=== PATIENT | female | born 1965 | race Caucasian/White ===

== ENCOUNTER → 2017-06-16 12:45 | Outpatient (CLI) | payer OTHER, SELFPAY ==
--- NOTE | 2017-06-16 12:49 | MM_ITS ---
MM Dig screening mamm BI w/CAD CAD Screening COMPARISON: Digital mammograms 07/22/2011 and 04/09/2015 INDICATION: There is a history of breast cancer patient's mother and maternal aunt both diagnosed after menopause. TECHNIQUE: Standard CC and MLO images were obtained. R2 CAD reviewed. FINDINGS: There is a markedly dense and heterogenic parenchymal pattern lessening the sensitivity of mammography. There is a biopsy clip right breast. There are few benign-appearing calcifications in each breast. There is no suspicious lesion and there are no suspicious microcalcifications. IMPRESSION: Diffusely dense parenchymal pattern no suspicious lesion seen BI-RADS Category: 2 Benign Finding(s) RECOMMENDED FOLLOW-UP: 1YR - 1 YEAR FOLLOW-UP (A letter has been sent to the patient regarding results of the study.)
== END ==
PROVIDERS: Family Provider Family Medicine; PCP Family Medicine; Visit Provider Family Medicine
DX: Z12.31 Encounter for screening mammogram for malignant neoplasm of breast (principal)
CPT/HCPCS: 77067

== ENCOUNTER 2018-07-15 15:38 | Emergency (ER) | payer OTHER, MEDICARE, SELFPAY ==
[2018-07-15 16:12] VITALS: BP 127/78; PULSE 90; RESP 17; TEMP 36.7; O2SAT 100; BMI 22.0
--- NOTE | 2018-07-15 16:16 | CT_ITS ---
CT pelvis wo con INDICATION: Posterior lytic pain ITS.REASON: fall ORDERING PHYSICIAN: Norman Carbajal MD PATIENT AGE: 53 years COMPARISON: None TECHNIQUE: Axial images are obtained without contrast. Sagittal and coronal reformatted images are reviewed as well. All CT scans at the facility use one or more dose reduction, viz: automated exposure control, ma/kV adjustment per patient size (including targeted exams where dose is matched to indication, i.e. head), or iterative reconstruction technique. FINDINGS: No fracture or dislocation is evident. No coccyx subluxation or lytic or blastic change. The SI joints have an unremarkable appearance. Small amount fluid is present in the pelvis which is nonspecific. IMPRESSION: No acute fracture
--- NOTE | 2018-07-15 16:16 | CT_ITS ---
CT head/brain wo con HISTORY: Headache, head injury with pain, ITS.REASON: fall ORDERING PHYSICIAN: Norman Carbajal MD PATIENT AGE: 53 years COMPARISON: None TECHNIQUE: Axial images obtained without contrast. Brain and bone windows reviewed. All CT scans at the facility use one or more dose reduction, viz: automated exposure control, ma/kV adjustment per patient size (including targeted exams where dose is matched to indication, i.e. head), or iterative reconstruction technique. FINDINGS: No midline shift, mass effect, intracranial hemorrhage, hydrocephalus, or extra-axial fluid collection is evident. The calvarium has an unremarkable appearance. No mastoid effusion. No sinus air-fluid levels.. IMPRESSION: Negative CT head without contrast. No acute finding
--- NOTE | 2018-07-15 16:16 | CT_ITS ---
CT thoracic spine wo con INDICATION: Severe back pain following injury ITS.REASON: fall ORDERING PHYSICIAN: Norman Carbajal MD PATIENT AGE: 53 years COMPARISON: None TECHNIQUE: Axial images are obtained without contrast. Sagittal and coronal reformatted images are reviewed as well. All CT scans at the facility use one or more dose reduction, viz: automated exposure control, ma/kV adjustment per patient size (including targeted exams where dose is matched to indication, i.e. head), or iterative reconstruction technique. FINDINGS: Normal alignment. No fracture or dislocation. No significant arthritic change. Visualized lung dinero are clear. No paraspinal hematoma. No lytic or blastic change IMPRESSION: Negative thoracic spine CT, no acute finding
--- NOTE | 2018-07-15 16:16 | XR_ITS ---
XR hip LT 2-3V w/pelvis HISTORY: ITS.REASON: fall ORDERING PHYSICIAN: Norman Carbajal MD PATIENT AGE: 53 years COMPARISON: None FINDINGS: No fracture or dislocation is evident. No significant degenerative change. No lytic or blastic change. Unremarkable soft tissues IMPRESSION: Negative hip
--- NOTE | 2018-07-15 16:16 | XR_ITS ---
XR elbow LT 2V HISTORY: Pain following injury ITS.REASON: fall ORDERING PHYSICIAN: Norman Carbajal MD PATIENT AGE: 53 years COMPARISON: None FINDINGS: BONY STRUCTURES: No fracture or dislocation. No lytic or blastic change. Normal mineralization. SOFT TISSUES: Unremarkable. No radio opaque foreign bodies. No displaced fat pad. JOINT SPACE: Well-preserved. No significant arthritic changes evident. IMPRESSION: Negative elbow.
--- NOTE | 2018-07-15 16:16 | CT_ITS ---
CT CERVICAL SPINE WITHOUT CONTRAST CT RECONSTRUCTIONS HISTORY: ORDERING PHYSICIAN: Norman Carbajal MD PATIENT AGE: 53 years COMPARISON: None Technique: All CT scans at the facility use one or more dose reduction, viz: automated exposure control, ma/kV adjustment per patient size (including targeted exams where dose is matched to indication, i.e. head), or iterative reconstruction technique PROCEDURE: Axial spiral CT scanning performed of the cervical spine beginning at the base of the skull and continuing to the upper T-spine. 3-D multiplanar reconstruction with 3-D manipulation of volumetric data set in image rendering was completed by the radiologist and/or technologist with the supervision of the radiologist on independent workstation. FINDINGS: No fracture nor subluxation is evident. Normal prevertebral soft tissues. Facets, neural foramen and vertebral bodies intact and unremarkable. Normal C1/C2 relationships. Apices of lungs are clear with no acute findings. IMPRESSION: Cervical spine intact with no fracture nor subluxation.
--- NOTE | 2018-07-15 16:16 | CT_ITS ---
CT lumbar spine wo con INDICATION: ITS.REASON: fall ORDERING PHYSICIAN: Norman Carbajal MD PATIENT AGE: 53 years COMPARISON: None TECHNIQUE: Axial images obtained with sagittal and coronal reformats. All CT scans at the facility use one or more dose reduction, viz: automated exposure control, ma/kV adjustment per patient size (including targeted exams where dose is matched to indication, i.e. head), or iterative reconstruction technique. FINDINGS: Normal alignment. No fracture or dislocation. The disc spaces are well-preserved. No significant degenerative change. No canal stenosis IMPRESSION: No acute finding, negative CT lumbar spine
--- NOTE | 2018-07-15 16:17 | HMH.EDGENADL ---
ED Disposition Clinical Impression: Multiple contusions Fall Qualifiers: Encounter type: initial encounter Qualified Code(s): W19.XXXA - Unspecified fall, initial encounter Disposition: Home, Self-Care Condition on Discharge: Good Additional Instructions: Ibuprofen for pain. Follow-up with primary care provider next week. Referrals: Mynor Deutsch MD [Primary Care Provider] - - Critical Care Critical Care Time: No Attestation: On 07/15/18, the high probability of a clinically significant, sudden or life threatening deterioration of the following system(s) required my full and direct attention, intervention and personal management. The time I documented below is in addition to time spent performing reported procedures but includes the following listed in this critical care notation. Medical Decision Making - Carlos Inquiry Pt receiving controlled substance: No Carlos was queried for this patient: Yes Reference #:: [id number] Comment: 30 rxs, almost all for gabapentin and xanax. Vital Signs: 07/15/18 16:12 07/15/18 16:20 07/15/18 17:20 Temperature 98.0 F Temperature Source Oral Pulse Rate [Right Brachial] 90 79 70 Respiratory Rate 17 Blood Pressure [Right Arm] 127/78 143/76 H 108/72 L Blood Pressure Mean [Right Arm] 94 98 84 Blood Pressure Source [Right Arm] Automatic Cuff Blood Pressure Position [Right Arm] Sitting 02 Sat by Pulse Oximetry 100 98 96 Oxygen Delivery Method Room Air Orders (Tests/Meds): ORDERS Category Date Time Status XR elbow LT 2V Stat Exams 07/15/18 16:16 Taken XR hip LT 2-3V w/pelvis Stat Exams 07/15/18 16:16 Taken - Radiology Data #1 Image(s): Elbow, Hip Image Reviewed: Yes I reviewed the patient's radiology image Preliminary Findings: Normal/NAD - CT Data CT Scan: Head, C-Spine, Pelvis, T-Spine, L-Spine Time Received: 17:[address] Reviewed: Yes: I have viewed the radiologist's interpretation Preliminary Findings: Normal/NAD - Reevaluation(s) Time: 17:35 Reevaluation #1: Discussed results. Patient says her pain has alleviated and her legs are feeling better. General Adult HPI - General Chief complaint: Fall Stated complaint: Fell/Body Pain Time Seen by Provider: 07/15/18 16:19 Mode of Arrival: Ambulatory Limitations: No Limitations Description of Symptoms (Recalled from ER Triage Doc. by RN): pt states she fell at home on wednesday of this week; accidentally slid to floor instead of sitting on bed like she had planned and hit her left elbow, left arm and left leg. outside of having bruises, and being sore; no additional complaints at that time. has since developed a knot between her shoulder blades on her spine that is radiating a pain up into her neck and causing her legs to feel heavy . denies any issues with bowel or bladder at this time. - History of Present Illness HPI narrative: States she fell on Wednesday while getting into bed landing on her left side. Has been sore and stiff all week long. Has pain in her left elbow left hip and thoracic back. Today the pain in between her shoulder blades in the thoracic spine became severe and she feels like her muscles in her arms and legs are weak. The pain goes up into her neck. She has chronic neck problems as well from cervical neuralgia. She also has chronic migraines and has a headache. Pain also goes down from her thoracic spine into her lower back. - Related Data Allergies Allergy/AdvReac Type Severity Reaction Status Date / Time eletriptan [From RELPAX] Allergy Unknown TIGHTNESS Unverified 03/02/17 14:52 AND TINGLING IN THROAT tramadol [TRAMADOL] AdvReac Unknown INSTRUCTED Unverified 03/02/17 14:52 TO NOT TAKE R/T SEIZURE HX [facility] History - Hepatitis A Screen Drug use history?: No High risk sexual behaviors?: No History of sexually transmitted infection?: No Currently employed?: No Childcare worker?: No Do you have indoor plumbin
[2018-07-15 16:20] VITALS: BP 143/76; PULSE 79; O2SAT 98
[2018-07-15 17:20] VITALS: BP 108/72; PULSE 70; O2SAT 96
[2018-07-15 17:46] VITALS: BP 121/79; PULSE 71; RESP 17; TEMP 36.7; O2SAT 99
== END 2018-07-15 17:57 | disposition home or self-care (01) ==
PROVIDERS: Emergency Provider Emergency Medicine; PCP Family Medicine
DX: S50.12XA Contusion of left forearm, initial encounter (principal); S70.12XA Contusion of left thigh, initial encounter; S40.012A Contusion of left shoulder, initial encounter; W01.0XXA Fall on same level from slipping, tripping and stumbling without subsequent striking against object, initial encounter; Y92.013 Bedroom of single-family (private) house as the place of occurrence of the external cause
CPT/HCPCS: 70450; 72125; 72128; 72131; 72192; 73070; 73502; 96372; 99282

== ENCOUNTER → 2019-02-06 16:56 | Outpatient (CLI) | payer OTHER, MEDICARE, SELFPAY ==
--- NOTE | 2019-02-06 17:03 | XR_ITS ---
PROCEDURE: XR ELBOW LT MIN 3V CLINICAL INDICATION: CONTUSION OF LEFT ELBOW, SUBSEQUENT ENCOUNTER Posttraumatic pain and swelling with limited range of motion COMPARISON: No exams were available for comparison FINDINGS: There is a positive anterior fat pad. On the lateral view there is a suggestion of a nondisplaced transverse fracture through the neck of the radius. This is however only identified on one view. Consider CT for confirmation. No other significant anomalies are evident. IMPRESSION: Suspect transverse fracture at the neck of the radius which may be confirmed with CT with displaced fat pad suggesting intra-articular hemarthrosis Dictated by: Gavin Sam MD 02/06/2019 17:19 Electronically signed by Gavin Sam MD in [place] 02/06/2019 17:19
== END ==
PROVIDERS: PCP Family Medicine; Visit Provider Family Medicine
DX: S50.02XD Contusion of left elbow, subsequent encounter (principal)
CPT/HCPCS: 73080

== ENCOUNTER → 2019-08-30 16:37 | Outpatient (CLI) | payer OTHER, MEDICARE, SELFPAY ==
--- NOTE | 2019-08-30 16:43 | MM_ITS ---
PROCEDURE: MM DIG SCREENING MAMM BI W/CAD Digital Breast Tomosynthesis Included CLINICAL INDICATION: SCREENING There is a history of breast cancer in the patient's mother and maternal aunt. There has been a previous biopsy right breast with benign findings. COMPARISON: [facility] MAMMO SCRN DIGITL BILAT from 07/22/2011 MA MAMMO SCRN DIGITL BILAT from 04/09/2015 [facility] MM Dig screening mamm BI w/CAD from 06/16/2017 TECHNIQUE: Standard CC and MLO images and 3D Tomosynthesis was obtained. R2 CAD reviewed. FINDINGS: Prominent diffuse heterogenic fibroglandular densities are seen in both breasts and the findings of bilateral and symmetrical. There is a biopsy clip right breast and there is a benign-appearing microcalcification right breast and benign-appearing microcalcifications left breast. Marvin images are most helpful in this type of dense breast parenchyma. There is no suspicious lesion in either breast and no suspicious microcalcifications. IMPRESSION: Stable dense parenchymal pattern with no suspicious lesions seen BI-RAD Category: 2 Benign Finding(s) FOLLOW-UP: 1YR 1 Year Follow-up (A letter has been sent to the patient regarding results of the study.) Dictated by: Dr. Sonu Bender MD 09/01/2019 08:[address] Sonu Bender MD in [place] 09/01/2019 08:29
== END ==
PROVIDERS: PCP Family Medicine; Visit Provider Family Medicine
DX: Z12.31 Encounter for screening mammogram for malignant neoplasm of breast (principal)
CPT/HCPCS: 77063; 77067

== ENCOUNTER 2019-10-13 13:16 | Emergency (ER) | payer OTHER, MEDICARE, SELFPAY ==
--- NOTE | 2019-10-13 14:03 | HMH.EDUTC ---
[facility] [place] Disposition Clinical Impression: URI (upper respiratory infection) Qualifiers: URI type: unspecified viral URI Qualified Code(s): J06.9 - Acute upper respiratory infection, unspecified Disposition: Home, Self-Care Condition on Discharge: Good Instructions: Preventing the Spread of Coronavirus Discharge Instructions Additional Instructions: You have been tested for COVID19. Test results generally take 48-72 hours. Quarantine yourself as if you are positive until test results are back. Referrals: Mynor Deutsch MD [Primary Care Provider] - Time of Disposition: 14:43 Medical Decision Making - Carlos Inquiry Pt receiving controlled substance: No Vital Signs: 10/13/19 14:16 Temperature 98.3 F Temperature Source Oral Pulse Rate [Right Brachial] 68 Respiratory Rate 18 Blood Pressure [Right Arm] 112/73 Blood Pressure Mean [Right Arm] 86 Blood Pressure Source [Right Arm] Automatic Cuff Blood Pressure Position [Right Arm] Sitting 02 Sat by Pulse Oximetry 99 Oxygen Delivery Method Room Air Orders (Tests/Meds): ORDERS Category Date Time Status SARS-CoV-2, GAEL ([place]) Stat Lab 10/13/19 14:30 Received [facility] [place] HPI - General Stated complaint: Fever; Body Aches Time Seen by Provider: 10/13/19 14:03 - History of Present Illness Provider Complaint: Low grade fever, body aches, runny nose, congestion, sore throat X 2-3 days. No vomiting or diarrhea. No known exposure to COVID19, but requests testing. Onset (ago): day(s) (2) Relieving factors: none Exacerbating factors: none Associated symptoms: fever/chills Treatments prior to arrival: none - Related Data Allergies Allergy/AdvReac Type Severity Reaction Status Date / Time eletriptan [From RELPAX] Allergy Unknown TIGHTNESS Unverified 03/02/17 14:52 AND TINGLING IN THROAT tramadol [TRAMADOL] AdvReac Unknown INSTRUCTED Unverified 03/02/17 14:52 TO NOT TAKE R/T SEIZURE HX [facility] History - Hepatitis A Screen Attestation statement:: This patient has been screened for Hepatitis A risk factors. I have reviewed the patient's past medical history: Yes ROS Obtained: Yes All systems reviewed & no additional complaints - Constitutional Constitutional: Reports body ache, Reports chills, Reports fatigue, Reports fever(s) - ENT Ears, Nose, Mouth, and Throat: Reports headache(s), Reports nasal congestion, Reports sinus pain, Reports sore throat Physical Exam - General General appearance: alert, in no apparent distress - Head Head exam: atraumatic, normocephalic, normal inspection - Eye Eye exam: Present: normal appearance, PERRL, EOMI - ENT ENT exam: Present: normal exam, normal oropharynx, mucous membranes moist, TM's normal bilaterally, normal external ear exam - Expanded ENT Exam Throat exam: Present: other (PND) - Neck Neck exam: Present: normal inspection, full ROM, trachea midline. Absent: meningismus, lymphadenopathy - Chest Chest inspection: Present: normal inspection, symmetric chest wall rise. Absent: tenderness - Respiratory Respiratory exam: Present: normal lung sounds bilaterally. Absent: respiratory distress - Cardiovascular Cardiovascular exam: Present: regular rate, normal rhythm. Absent: JVD - Abdominal Exam Abdominal exam: Present: soft, normal bowel sounds. Absent: distention, tenderness, guarding - Extremities Exam Extremities exam: Present: normal inspection, full ROM, normal capillary refill. Absent: calf tenderness - Back Exam Back exam: Present: normal inspection. Absent: tenderness - Neurological Exam Neurological exam: Present: alert, oriented X3 - Psychiatric Psychiatric exam: Present: normal affect, normal mood - Skin Skin exam: Present: warm, dry, intact, normal color - Lymphatic Lymphatic Findings: no adenopathy
[2019-10-13 14:16] VITALS: BP 112/73; PULSE 68; RESP 18; TEMP 36.8; O2SAT 99; BMI 21.8
[2019-10-13 14:57] VITALS: BP 112/73; PULSE 68; RESP 18; TEMP 36.8; O2SAT 99
[2019-10-15 09:50] LABS: Covid-19 Nasal PCR Sendout UK Not Detected
== END 2019-10-13 14:57 | disposition home or self-care (01) ==
PROVIDERS: Physician Assistant; Emergency Provider Nurse Practitioner; PCP Family Medicine
DX: J06.9 Acute upper respiratory infection, unspecified (principal); Z03.818 Encounter for observation for suspected exposure to other biological agents ruled out
CPT/HCPCS: 99201; U0003

== ENCOUNTER 2020-03-21 10:08 | Emergency (ER) | payer OTHER, MEDICARE, SELFPAY ==
[2020-03-21 10:09] VITALS: BP 107/71; PULSE 54; RESP 14; TEMP 36.8; O2SAT 98; BMI 22.8
--- NOTE | 2020-03-21 10:44 | HMH.EDUTC ---
[facility] [place] Disposition Clinical Impression: Viral syndrome, Exposure to COVID-19 virus Disposition: Home, Self-Care Condition on Discharge: Good Instructions: DI for COVID-19 (Suspected or Confirmed ), Preventing the Spread of Coronavirus Discharge Instructions Additional Instructions: Drink plenty of fluids. Take tylenol for pain or fever. Return if you begin to have difficulty breathing. Follow up with your regular doctor. GO TO THE ER FOR ANY WORSENING SYMPTOMS Prescriptions: Ondansetron [Zofran 4mg ODT] 4 mg PO Q8HP PRN #12 tab.rapdis PRN Reason: Nausea Transmission Status: Received by [place] [id number] Benzonatate [Tessalon Perle 100mg Cap] 100 mg PO TIDP PRN #30 cap PRN Reason: Cough Transmission Status: Received by [place] [id number] Referrals: Mynor Deutsch MD [Primary Care Provider] - Time of Disposition: 10:56 Medical Decision Making - Medical Records Medical records reviewed: No: I reviewed the patient's medical records. - Carlos Inquiry Pt receiving controlled substance: No Vital Signs: 03/21/20 10:09 03/21/20 10:58 Temperature 98.3 F 98.3 F Temperature Source Oral Pulse Rate 54 L Pulse Rate [Right] 54 L Respiratory Rate 14 14 Blood Pressure 107/71 L Blood Pressure [Right Arm] 107/71 L Blood Pressure Mean [Right Arm] 83 02 Sat by Pulse Oximetry 98 - Lab Data Lab Results 03/21/20 11:26: Influenza Type A Ag Negative, Influenza Type B Ag Negative Orders (Tests/Meds): ORDERS Category Date Time Status Covid-19 Nasal PCR ([facility]) Routine Lab 03/21/20 10:30 Received [facility] [place] HPI - General Stated complaint: fever, body aches, cough Time Seen by Provider: 03/21/20 10:44 Mode of Arrival: Ambulatory Source of Information: Patient Limitations: No Limitations Description of Symptoms (Recalled from Triage Doc. by RN): pt request covid test. pt c/o fever, chills body aches HEENT Symptoms (Recalled from RN notes): Yes Resp Symptoms (Recalled from RN notes): Yes Skin Symptoms (Recalled from RN notes): No MS Symptoms (Recalled from RN notes): No Functional Status (Recalled from RN notes): wnl - History of Present Illness Provider Complaint: She complains of body aches, low grade fever (up to 100.2), cough, chest congestion, nausea, scratchy sore throat, and feeling very bad since yesterday evening. She denies any documented Covid exposure, but she would like to be tested for Covid-19. She denies any chest pain or shortness of breath. - Related Data Previous Rx's Medication Instructions Recorded Benzonatate [Tessalon Perle 100mg 100 mg PO TIDP PRN #30 cap 03/21/20 Cap] Ondansetron [Zofran 4mg ODT] 4 mg PO Q8HP PRN #12 tab.rapdis 03/21/20 Allergies Allergy/AdvReac Type Severity Reaction Status Date / Time eletriptan [From RELPAX] Allergy Unknown TIGHTNESS Verified 03/21/20 10:31 AND TINGLING IN THROAT tramadol [TRAMADOL] AdvReac Unknown INSTRUCTED Verified 03/21/20 10:31 TO NOT TAKE R/T SEIZURE HX - Worker's Comp Is this a Worker's Comp case?: No Is this an [facility] Worker's Comp?: No Is this a [place] Worker's Comp?: No [facility] History - Hepatitis A Screen Drug use history?: No High risk sexual behaviors?: No History of sexually transmitted infection?: No Currently employed?: No Childcare worker?: No Do you have indoor plumbing?: Yes Do you have electricity?: Yes Attestation statement:: This patient has been screened for Hepatitis A risk factors. I have reviewed the patient's past medical history: Yes Laterality Cases: Bilateral: Tonsillectomy - Social History Alcohol Intake: never Occupational Status: other ROS Obtained: Yes All systems reviewed & no additional complaints - Constitutional Constitutional: Reports system reviewed and no additional complaints, except as docu - Eyes Eyes: Reports system reviewed and no additional complaints, except as docu - ENT Ears, Nose, Mouth,
[2020-03-21 10:58] VITALS: BP 107/71; PULSE 54; RESP 14; TEMP 36.8; O2SAT 98
[2020-03-21 11:30] LABS: UTC Influenza A Antigen Negative (Negative); UTC Influenza B Antigen Negative (Negative)
== END 2020-03-21 11:00 | disposition home or self-care (01) ==
PROVIDERS: Emergency Provider Nurse Practitioner Family; PCP Family Medicine
DX: Z20.822 Contact with and (suspected) exposure to COVID-19 (principal); B34.9 Viral infection, unspecified
CPT/HCPCS: 87804; 99202; G0463; U0003

== ENCOUNTER 2020-09-19 11:16 | Emergency (ER) | payer MEDICARE, SELFPAY ==
--- NOTE | 2020-09-19 11:16 | ECG_ITS ---
APPROVED REPORT Exam: Resting ECG HR:72 bpm ECG Measurements Heart Rate 72 AXES LA 196 P 81 QRSd 90 QRS 89 QT 378 T 76 QTc 413 Conclusion Normal sinus rhythm Normal ECG Electronically signed by : Paul Howard, 09/19/2020 17:41:58
[2020-09-19 11:17] VITALS: BP 130/69; PULSE 69; RESP 16; TEMP 37.2; O2SAT 98; BMI 22.0
--- NOTE | 2020-09-19 11:27 | XR_ITS ---
PROCEDURE: XR CHEST 2V CLINICAL HISTORY: cp Chest pain and palpitations COMPARISON: CT SPTHORWO CT thoracic spine wo con from 07/15/2018 FINDINGS: The cardiomediastinal silhouette and pulmonary vascularity are within normal limits. There is mild biapical pleural thickening with small blebs in the lung apices. No lobar consolidation or collapse is evident. No evidence of pneumothorax. No acute bony abnormalities. IMPRESSION: No acute finding. Mild biapical pleural thickening with small biapical blebs Dictated by: Gavin Sam MD 09/19/2020 12:21 Gavin Sam MD in [place] 09/19/2020 12:21
--- NOTE | 2020-09-19 11:29 | HMH.EDGENADL ---
ED Disposition Clinical Impression: Palpitations Disposition: Home, Self-Care Condition on Discharge: Good Referrals: Mynor Deutsch MD [Primary Care Provider] - 3 days Time of Disposition: 14:25 - Critical Care Critical Care Time: No Attestation: On , the high probability of a clinically significant, sudden or life threatening deterioration of the following system(s) required my full and direct attention, intervention and personal management. The time I documented below is in addition to time spent performing reported procedures but includes the following listed in this critical care notation. Medical Decision Making - Medical Records Medical records reviewed: Yes: I reviewed the patient's medical records. - Carlos Inquiry Pt receiving controlled substance: No Vital Signs: 09/19/20 11:17 09/19/20 11:31 09/19/20 12:01 Temperature 99 F Temperature Source Oral Pulse Rate 69 72 Pulse Rate [Radial] 69 Respiratory Rate 16 18 18 Blood Pressure 112/70 110/64 Blood Pressure [Right Arm] 130/69 Blood Pressure Mean 81 76 Blood Pressure Mean [Right Arm] 89 Blood Pressure Position [Right Arm] Sitting 02 Sat by Pulse Oximetry 98 100 100 Oxygen Delivery Method Room Air 09/19/20 12:31 09/19/20 13:30 Temperature Temperature Source Pulse Rate 67 Pulse Rate [Radial] Respiratory Rate 18 Blood Pressure 68/47 L 93/46 L Blood Pressure [Right Arm] Blood Pressure Mean 54 52 Blood Pressure Mean [Right Arm] Blood Pressure Position [Right Arm] 02 Sat by Pulse Oximetry 97 Oxygen Delivery Method - Lab Data Lab results reviewed: Yes: I reviewed the patient's lab results. Lab Results 09/19/20 11:20: WBC 3.7 L, RBC 4.80, Hgb 14.6, Hct 44.7, MCV 93.0, MCH 30.3, MCHC 32.6, RDW 12.2, Plt Count 172, MPV 7.9, Neut % (Auto) 55.8, Lymph % (Auto) 30.3, [place] % (Auto) 7.7, Eos % (Auto) 5.1, Baso % (Auto) 1.2, Neut # (Auto) 2.1, Lymph # (Auto) 1.1, [place] # (Auto) 0.3, Eos # (Auto) 0.2, Baso # (Auto) 0.0 09/19/20 11:20: Sodium 140, Potassium 3.8, Chloride 103, Carbon Dioxide 30, Anion Gap 10.8, BUN 13, Creatinine 0.70, Estimated Creat Clear 93, Estimated GFR 87, Est GFR ( Amer) 105, Glucose 84, Calcium 9.2, Troponin I < 0.01 09/19/20 13:24: Troponin I < 0.01 Result diagrams: 09/19/20 11:20 09/19/20 11:20 Orders (Tests/Meds): ED MEDICATIONS Discontinued Medications Generic Name Dose Route Start Last Admin Trade Name Freq PRN Reason Stop Dose Admin Aspirin 324 mg 09/19/20 11:27 09/19/20 11:33 Aspirin 81mg Chewable Tablet PO 09/19/20 11:28 324 mg ONCE ONE Administration ORDERS Category Date Time Status Troponin I Q3H Lab 09/19/20 17:30 Ordered ECG Request by /Lianne Stat Y 09/19/20 11:27 Stop Req - Radiology Data #1 Image(s): Chest Image Reviewed: Yes I reviewed the patient's radiology results Preliminary Findings: Normal/NAD - ECG Data Tracing #1 I reviewed this ECG and interpreted as documented below: Normal sinus rhythm, 72 bpm, no ST elevation or depression, no ectopy, normal intervals. ECG initial impression date: 09/19/20 ECG initial impression time: 11:20 - SO Score for Non-Stemi Age of Patient: 50-59 years old Heart Rate: 50-69 bpm Systolic Blood Pressure: 120-139 mmhg Serum Creatinine: 0.40-0.79 mg/dl CHF Killip Class: I-No CHF Other Risk Factors: None Non-Stemi Risk Score: 82 Medical Decision Narrative: 55yo F presents the emergency department secondary to palpitations. Patient is in no acute distress on initial evaluation. EKG is benign as above. Chest x-ray benign. Cardiac work-up has been initiated. CBC, BMP, troponin are all unremarkable. Repeat troponin pending. Repeat troponin negative. Patient remains asymptomatic at this time. She is appropriate stable for discharge home. Encouraged her to follow-up with her PCP in a few days and possibly arrange outpatient stress test. General Adult HPI - General S
[2020-09-19 11:31] VITALS: BP 112/70; PULSE 69; RESP 18; O2SAT 100
[2020-09-19 11:35] LABS: Basophils % 1.2 % (0.1-2.0); Eosinophils # 0.2 K/mm3 (0.0-0.4); Eosinophils % 5.1 % (0.1-12.0); Hematocrit 44.7 % (37.0-47.0); Hemoglobin 14.6 g/dL (12.2-16.2); Lymphocytes # 1.1 K/mm3 (0.7-4.5); Lymphocytes % 30.3 % (10-50); Mean Corpuscular HGB Conc 32.6 g/dL (31.8-35.4); Mean Corpuscular Hemoglobin 30.3 pg (27.0-31.2); Mean Platelet Volume 7.9 fl (7.4-10.4); Monocytes # 0.3 K/mm3 (0.1-1.0); Monocytes % 7.7 % (1.7-9.3); Neutrophils # 2.1 K/mm3 (1.8-7.8); Neutrophils % 55.8 % (37.0-80.0); Platelet Count 172 K/mm3 (142-424); Red Cell Distribution Width 12.2 % (11.5-17.5); White Blood Count 3.7 K/mm3 (4.8-10.8)
[2020-09-19 11:49] LABS: Anion Gap 10.8 mEq/L (5-15); Blood Urea Nitrogen 13 mg/dl (7-17); Calcium 9.2 mg/dl (8.4-10.2); Carbon Dioxide 30 mmol/L (22.0-30.0); Chloride 103 mmol/L (98-107); Creatinine Clearance Estimated 93 mL/min (50-200); Estimated Glomerular Filt Rate 87 ml/min (>60); GFR (African American) 105 ML/MIN (>60); Glucose 84 mg/dl (74-100); Potassium 3.8 mmoL/L (3.5-5.1); Sodium 140 mmol/L (136-145)
[2020-09-19 12:01] VITALS: BP 110/64; PULSE 72; RESP 18; O2SAT 100
[2020-09-19 12:01] LABS: Troponin I < 0.01 ng/ml (0.00-0.034)
[2020-09-19 12:31] VITALS: BP 68/47
[2020-09-19 13:30] VITALS: BP 93/46; PULSE 67; RESP 18; O2SAT 97
[2020-09-19 14:11] LABS: Troponin I < 0.01 ng/ml (0.00-0.034)
[2020-09-19 14:32] VITALS: BP 123/74; PULSE 78; RESP 16; TEMP 36.6; O2SAT 98
== END 2020-09-19 14:34 | disposition home or self-care (01) ==
PROVIDERS: Emergency Provider Family Medicine; PCP Family Medicine
DX: R00.2 Palpitations (principal); F41.9 Anxiety disorder, unspecified
CPT/HCPCS: 71046; 80048; 84484; 85025; 93005; 99282; 99283

== ENCOUNTER → 2020-10-19 13:58 | Outpatient (CLI) | payer MEDICARE, SELFPAY | PROVIDERS: PCP Family Medicine; Visit Provider Family Medicine | DX: Z20.822 Contact with and (suspected) exposure to COVID-19 (principal) | CPT/HCPCS: U0003 ==

== ENCOUNTER → 2020-12-02 14:35 | Outpatient (CLI) | payer MEDICARE, SELFPAY | PROVIDERS: PCP Family Medicine; Visit Provider Nurse Practitioner | DX: Z20.822 Contact with and (suspected) exposure to COVID-19 (principal) | CPT/HCPCS: C9803; U0003; U0005 ==

== ENCOUNTER → 2021-02-20 12:43 | Outpatient (CLI) | payer MEDICARE, SELFPAY ==
--- NOTE | 2021-02-20 12:46 | MM_ITS ---
PROCEDURE INFORMATION: Exam: MG Bilateral Screening 3D Mammography Exam date and time: 02/20/2021 12:46 PM Age: 55 years old Clinical indication: Encounter for screening mammogram for malignant neoplasm of breast TECHNIQUE: Imaging protocol: Bilateral screening tomosynthesis and 2D mammography including computer-aided detection (CAD) when performed. COMPARISON: 1. MG MM DIG SCREENING MAMM BI W/CAD 08/30/2019 4:47 PM 2. MG SCBI MM Dig screening mamm BI w/CAD 06/16/2017 1:10 PM FINDINGS: MAMMOGRAPHY: Breast composition: The breast tissue is extremely dense, limiting the sensitivity of mammography. Mass: None. Architectural distortion: None. Calcifications: No suspicious calcifications. Asymmetric density: None. Skin thickening: None. Axillary adenopathy: None. IMPRESSION: No mammographic evidence of malignancy. Annual screening is recommended unless otherwise clinically indicated. ASSESSMENT: BI-RADS Category 1: Negative
== END ==
PROVIDERS: PCP Family Medicine; Visit Provider Family Medicine
DX: Z12.31 Encounter for screening mammogram for malignant neoplasm of breast (principal)
CPT/HCPCS: 77063; 77067

== ENCOUNTER → 2022-06-24 10:24 | Outpatient (CLI) | payer MEDICARE, SELFPAY ==
--- NOTE | 2022-06-24 10:43 | MM_ITS ---
PROCEDURE INFORMATION: Exam: MG Bilateral Screening 3D Mammography Exam date and time: 06/24/2022 10:35 AM Age: 56 years old Clinical indication: Screening examination. Her mother and maternal aunt had breast cancer. TECHNIQUE: Imaging protocol: Bilateral Screening tomosynthesis and 2D mammography including computer-aided detection (CAD) when performed. COMPARISON: 1. MG MM DIG SCREENING MAMM BI W/CAD 02/20/2021 1:09 PM 2. MG MM DIG SCREENING MAMM BI W/CAD 08/30/2019 4:47 PM 3. MG SCBI MM Dig screening mamm BI w/CAD 06/16/2017 1:10 PM 4. MG MA MAMMO SCRN DIGITL BILAT 04/09/2015 3:23 PM FINDINGS: MAMMOGRAPHY: Breast composition: The breasts are extremely dense, which lowers the sensitivity of mammography. Mass: None. Architectural distortion: None. Calcifications: No suspicious calcifications. Asymmetric density: None. Skin thickening: None. Axillary adenopathy: None. Other: Right biopsy clips. IMPRESSION: No mammographic evidence of malignancy. Annual screening is recommended unless otherwise clinically indicated. ASSESSMENT: BI-RADS Category 2: Benign
== END ==
PROVIDERS: PCP Family Medicine; Visit Provider Family Medicine
DX: Z12.31 Encounter for screening mammogram for malignant neoplasm of breast (principal)
CPT/HCPCS: 77063; 77067

== ENCOUNTER 2023-08-07 10:39 | Emergency (ER) | payer MEDICARE, SELFPAY ==
[2023-08-07 10:50] VITALS: BP 98/53; PULSE 66; RESP 18; TEMP 36.8; O2SAT 100; BMI 21.5
--- NOTE | 2023-08-07 11:08 | ED_ITS ---
Discharge Plan Disposition Patient Disposition: Home, Self-Care Condition: Good Prescriptions Prescriptions: New fluconazole [Diflucan] 100 mg tablet 100 mg PO DAILY 3 Days Qty: 3 0RF Referrals Follow up/Referrals: Mynor Deutsch MD [Primary Care Provider] - See instructions Activity Restrictions/Add. Instructions Additional Instructions/Restrictions: Will send urine for culture. Clinical Impressions Clinical Impression: Candidal vaginitis Instructions Patient Instructions: DI for Vaginal Yeast Infection Discharge ED Provider: Roxanne Yoo [facility] General Stated complaint: possible uti Mode of Arrival: Ambulatory Source of Information: Patient Limitations: No Limitations Time Seen by Provider: 08/07/23 11:04 Description of Symptoms (Recalled from Triage Doc. by RN): Pt's symptoms are bilateral lower pelvic pain, pressure with urination, and irritation feeling around vaginal area. HEENT Symptoms (Recalled from RN notes): No Resp Symptoms (Recalled from RN notes): No Skin Symptoms (Recalled from RN notes): No MS Symptoms (Recalled from RN notes): No Functional Status (Recalled from RN notes): n/a History of Present Illness Provider Complaint: Pt reports that she has had a lot of suprapubic pelvic pressure and vaginal irritation. She reports that she has had a vaginal discharge that has turned from clear to a thick yellow. She denies any flank pain. Related Data Previous Rx's Medication Instructions Recorded fluconazole 100 mg tablet 100 mg PO DAILY 3 days #3 tabs 08/07/23 (Diflucan) Allergies Allergy/AdvReac Type Severity Reaction Status Date / Time eletriptan [From RELPAX] Allergy Unknown TIGHTNESS Verified 08/07/23 11:00 AND TINGLING IN THROAT tramadol [TRAMADOL] AdvReac Unknown INSTRUCTED Verified 08/07/23 11:00 TO NOT TAKE R/T SEIZURE HX Worker's Comp Is this a Worker's Comp case?: No [facility] Disclaimer: The information contained in this section may have been updated after the patient was seen, as this information can be updated by other users. Social History Smoking Status: Never smoker alcohol intake: never current occupational status: other Travel in the last 8 weeks: None ROS Obtained: Yes All systems reviewed & no additional complaints except as documented Constitutional Constitutional: Reports system reviewed and no additional complaints, except as documented Eyes Eyes: Reports system reviewed and no additional complaints, except as documented ENT Ears, Nose, Mouth, and Throat: Reports system reviewed and no additional complaints, except as documented Cardiovascular Cardiovascular: Reports system reviewed and no additional complaints, except as documented Respiratory Respiratory: Reports system reviewed and no additional complaints, except as documented Gastrointestinal Gastrointestingal: Reports system reviewed and no additional complaints, except as documented and abdominal pain Genitourinary Female Genitourinary: Reports system reviewed and no additional complaints, except as documented, Reports pelvic pain and Reports vaginal discharge Musculoskeletal Musculoskeletal: Reports system reviewed and no additional complaints, except as documented Integumentary/Breasts Skin/Breast: Reports system reviewed and no additional complaints, except as documented Neurologic Neurologic: Reports system reviewed and no additional complaints, except as documented Endocrine Endocrine: Reports system reviewed and no additional complaints, except as documented Hematologic/Lymphatic Henatologic/Lymphatic: Reports system reviewed and no additional complaints, except as documented Allergic/Immunologic Allergic/Immunologic: Reports system reviewed and no additional complaints, except as documented Physical Exam General General appearance: alert and in no apparent distress Head Head exam: atraumatic and normocephalic Eye Eye exam: Present normal appearance ENT ENT exam: Present normal exam Neck Neck exam: Present normal inspection Chest Chest inspection: Present normal inspection and symmetric chest wall rise Respiratory Respiratory exam: Present normal lung sounds bilaterally Cardiovascular Cardiovascular exam: Present regular rate and normal rhythm Abdominal Exam Abdominal exam: Present soft, tenderness and normal bowel sounds Abdominal tenderness: Present suprapubic Extremities Exam Extremities exam: Present normal inspection Back Exam Back exam: Present normal inspection Neurological Exam Neurological exam: Present alert and oriented X3 Psychiatric Psychiatric exam: Present normal affect and normal mood Skin Skin exam: Present warm, dry and intact Lymphatic Lymphatic Findings: no adenopathy Medical Decision Making Carlos Inquiry Pt receiving controlled substance: No Carlos was queried for this patient: No Vital Signs: 08/07/23 10:50 Temperature 98.2 F Temperature Source Oral Pulse Rate [Right Radial] 66 Respiratory Rate 18 Blood Pressure [Right Arm] 98/53 L Blood Pressure Mean [Right Arm] 68 Blood Pressure Source [Right Arm] Automatic Cuff Blood Pressure Position [Right Arm] Sitting 02 Sat by Pulse Oximetry 100 Oxygen Delivery Method Room Air Lab Data Lab results reviewed: Yes I reviewed the patient's lab results.
[2023-08-07 11:18] LABS: Apearance,Urine Clear (Clear); Bilirubin,Urine Negative (Negative); Blood, Urine Trace (Negative); Color,Urine Yellow (Yellow); Glucose,Urine (UA) Negative (Negative); Ketones,Urine Negative (Negative); PH,Urine 7.5 (5.0-8.5); Protein,Urine Negative (Negative); UTC Leukocyte Esterase,Urine Negative (Negative); Urobilinogen,Urine 1 EU/dl (0.2)
[2023-08-07 11:19] LABS: UTC Nitrate,Urine Negative (Negative)
[2023-08-07 11:53] VITALS: BP 98/53; PULSE 66; RESP 18; TEMP 36.8; O2SAT 100
--- NOTE | 2023-08-07 11:53 | PC.NURSE ---
Sent urine to lab via tube system
== END 2023-08-07 11:53 | disposition home or self-care (01) ==
PROVIDERS: Emergency Provider Nurse Practitioner Family; PCP Family Medicine
DX: B37.31 Acute candidiasis of vulva and vagina (principal); B96.89 Other specified bacterial agents as the cause of diseases classified elsewhere
CPT/HCPCS: 81003; 87086; 99204; 99212; G0463

== ENCOUNTER 2024-05-21 10:55 | Outpatient (CLI) | payer MEDICARE, SELFPAY | END 2024-05-21 23:59 | disposition home or self-care (01) | LOC: LAB.DROPOF 05-22 16:35 | PROVIDERS: PCP Student in an Organized Health Care Education/Training Program; Visit Provider Student in an Organized Health Care Education/Training Program | DX: R05.9 Cough, unspecified (principal); R06.02 Shortness of breath; R50.9 Fever, unspecified; R09.81 Nasal congestion; R11.0 Nausea; R52 Pain, unspecified | CPT/HCPCS: 87635 ==

== ENCOUNTER 2024-10-09 09:49 | Outpatient (CLI) | payer MEDICARE, SELFPAY ==
--- OUTSIDE RECORDS SUMMARY | 2024-08-11 06:00 | XMS_ITS ---
Author Organization [facility] Address [address] [place], [place] [id number] Care Team Providers Care Oracle Security Consultant Name Role Phone Max Deutsch Primary Care Provider Allergies Allergen (clinical drug ingredient) Drug/Non Drug Allergy documented on EMR Reaction Allergy Type Onset Date Status indomethacin Indomethacin Unknown Drug Allergy A ctive nabumetone Relafen DS stomach pains Drug Allergy A ctive eletriptan Relpax chest pain Drug Allergy Activ e topiramate Topamax sob, fingers tingling Drug Allergy Active Results Component Value Reference Range Notes CBC Venipuncture (in house) Reviewed date:08/30/2024 02:12:57 PM Interpretation:Normal Performing Lab: Notes/Report: Normal wbc 4.2 3.5 - 10 lymph 23.3% 15 - 50 mid 6.8% 2 - 15 gran 69.9% 35 - 80 rbc 4.76 3.5 - 5.5 hgb 14.7 11.5 - 16.5 hct 44.7 35 - 55 mcv 93.9 75 - 100 mch 31.0 25 - 35 mchc 32.9 31 - 38 platlet 191 100 - 400 P-Comprehensive Metabolic Pa ar (CMP) Reviewed date:08/30/2024 02:12:57 PM Interpretation:satisfactory Performing Lab: Notes/Report: Test performed by [facility] [address] [place] [address] , [address], [place] [address] Raman Bradley MD, Can Technician CLIA: [id number] Sodium 141 135-145 mmol/L Potassium 4.5 3.5-5.3 mmol/L Chloride 103 97-108 mmol/L CO2 27 22-32 mmol/L Glucose 58 65-99 mg/dL BUN 13 8-23 mg/dL Creatinine 0.75 0.50-1.00 mg/dL Calcium 9.6 8.6-10.4 mg/dL eGFR by Creatinine 91 >59 mL/min/1.73m2 Protein 6.6 6.0-8.3 g/dL Albumin 4.4 3.5-5.3 g/dL Alkaline Phosphatase 83 35-121 IU/L ALT (SGPT) 18 <5-47 IU/L AST (SGOT) 20 <5-40 IU/L Bilirubin, Total 0.4 <0.2-1.2 mg/dL A/G Ratio 2.0 1.1-2.5 P-TSH Reviewed date:08/30/2024 02:12:57 PM Interpretation:Normal Performing Lab: Notes/Report: Test performed by [facility], [address] , [address], [place] [address] Raman Bradley MD, Can Technician CLIA: [id number] TSH 4.62 0.43-5.25 mU/L REASON FOR VISIT 3 month ckup, Needs labs, mammogram, bone density screening, & colon cancer screening Medications Medication SIG (Take, Route, Frequency, Duration) Notes Start Date End Date Status Excedrin Migraine 250-250-65 MG 2 tab(s) orally every 6 hours Active Omeprazole 20 MG 1 capsule orally onc e a day; Duration: 90 days Active Metoprolol Succinate ER 25 MG 1 tablet Orally Once a day; Duration: 90 days Active DULoxetine HCl 30 MG 1 cap(s) orally onc e a day Active Promethazine HCl 25 MG 1 tab(s) orally t hree times a day as needed 07/01/2022 Active MiraLax - 17 Grams Orally ONCE A DAY 02/16/2013 Active ALPRAZolam 0.5 MG 1 tab(s) orally 3 ti mes a day 08/11/2024 Active Qulipta 30 MG 1 tab(s) orally once a day Active Gabapentin 300 MG 2 cap(s) orally 3 ti mes a day Active Vital Signs Blood pressure systolic 84 mm Hg 08/12/19 25 Blood pressure diastolic 54 mm Hg 025 Heart Rate 71 /min 08/11/2024 Height 67 in 08/11/2024 Weight 134.8 lbs 08/11/2024 BMI 21.11 kg/m2 08/11/2024 Encounters Encounter Location Date Provider Diagnosis [facility] [address] [facility] [address] [facility] [address] [place] [id number] 08/11/2024 Max Deutsch Chronic tension-type headache, intractable G44.221 ; Fibrocystic breast disease (FCBD), unspecified laterality N60.19 ; Screen for colon cancer Z12.11 ; Breast screening Z12.39 ; Cervicalgia M54.2 ; Generalized anxiety disorder F41.1 ; Situational depression F43.21 and BMI 21.0-21.9, adult Z68.21 Assessments Encounter Date Diagnosis (ICD Code) Assessment Notes Treatment Notes Treatment Clinical Notes Section Notes 08/11/2024 Chronic tension-type headache, intractable (ICD-10 - G44.221) 08/11/2024 Fibrocystic breast disease (FCBD), unspecified laterality (ICD-10 - N60.19) 08/11/2024 Screen for colon cancer (ICD-10 - Z12.11) 08/11/2024 Breast screening (ICD-10 - Z12.39) 08/11/2024 Cervicalgia (ICD-10 - M54.2) 08/11/2024 Generalized anxiety disorder (ICD-10 - F41.1) 08/11/2024 Situational depression (ICD-10 - F43.21) 08/11/2024 BMI 21.0-21.9, adult (ICD-10 - Z68.21) Plan Of Treatment Medication Medication Name Sig Start Date Stop Date Notes ALPRAZolam 0.5 MG 1 tab(s) orally 3 times a day 08/11/2024 Pending Test Test Name Order Date colonoscopy 08/11/2024 Next Appt Details Follow Up: 4 Weeks, Reason: Provider Name:Max Herrera er, 12/11/2024 11:00:00 AM, [facility] [facility] [address] [facility], [address], [place], [phone], Progress Notes * TRUE, KATHYDOB:1965 (5 0 yo F)Acc No.[id number]:08/11/2024 Progress Notes Patient: CA DOWD Provider: Max Deutsch M.D. :1965 A ge:59 Y S ex:Female Date:08/11/2024 Address:[facility] [address] [place], [id number] Subjective: * Chief Complaints: * 1 . 3 month ckup. 2. Needs labs, mammogram, bone density screening, & colon cancer screening. * HPI: C ardiology: The pt is here for a check up on Hyperlipidemia. Pt states she is doing good except for a couple dizzy spells over the past 2 weeks. Pt states she is having a lot of sinus pressure and post nasal drip. Pt is not fasting. History of low BP. 59 year old female presents with c/o Dizziness e pisodic , sensation of imbalance , sensation of room spinning. Denies : Chest Pain. D enies : Short of Breath. D enies : Palpitations. * ROS: D ERMATOLOGY: no R juan. n o H daljit. G ASTROENTEROLOGY: no N ausea. n o V omiting. n o D iarrhea.? U ROLOGY: no D ifficulty urinating. n o B lood in urine. 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 Hyde since 01/2014, Pelvic US, small fibroid, nabothian cyst, 05/25/2012, CT Abd/pelvis normal 02/08/2013, Dystonia, Occipital Neuralgia , followed by Dr. Bruno, COVID 19 Vaccine x2, 2020, Pfizer. * Surgical History: T onsillectomy 1969, Mammatome Biopsy- Dr. Singleton 08/2005, Breast Fibroid Tumor Removed 12/15/2005, Root Canal 12/2012, Colonoscopy 04/2013, Lt Side of Nose Basal Cell Carcinoma, Dr. Ramirez 2021. * Hospitalization/Major Diagno stic Procedure: M igrane- [facility] 04/2013, Fall- [facility] 2018, Lt Arm Injury, Fell- [facility] 01/2019, Migraine- [facility] 05/14/2019, Headache- [facility] 11/2019, Headache- [facility] 11/2019. * Family History: F ather: alive. M other: alive. P aternal Grand Father: alive. P aternal Grand Mother: alive. M aternal Grand Father: alive. M aternal Grand Mother: alive. pt. adopted. * Social History: C URRENT TOBACCO USE S moking Status: Patient does NOT smoke. C affeine: yes, frequency:small amount. Exercise: yes. Home smoke detector use: yes. Marital Status: . New since last visit: none. Occupation: homemaker. Past smoking status: no, Smoking status: Does not smoke. Occup. exposure: none. Recreational drug use: no. Alcohol: no. Travel ouside [place]: no. * Medications: T aking Gabapentin 300 MG Capsule 2 cap(s) orally 3 times a day , Taking Qulipta 30 MG Tablet 1 tab(s) orally once a day , Taking MiraLax - POWDER FOR RECONSTITUTION 17 Grams Orally ONCE A DAY , Taking Excedrin Migraine 250-250-65 MG Tablet 2 tab(s) orally every 6 hours , Taking Omeprazole 20 MG Capsule Delayed Release 1 capsule orally once a day , Taking DULoxetine HCl 30 MG Capsule Delayed Release Particles 1 cap(s) orally once a day , Taking Metoprolol Succinate ER 25 MG Tablet Extended Release 24 Hour 1 tablet Orally Once a day , Taking ALPRAZolam 0.5 MG Tablet 1 tab(s) orally 3 times a day , Taking Promethazine HCl 25 MG Tablet 1 tab(s) orally three times a day as needed , Medication List reviewed and reconciled with the patient * Allergies: R elpax: chest pain, Topamax: sob, fingers tingling, Indomethacin, Relafen DS: stomach pains. Objective: * Vitals: W t: 134.8, Temp: 98.2, BP: 84/54, HR: 71, Nurse: MAY, Ht: 67, BMI:21.11. * Examination: G eneral Examination: General Appearance: N AD. H EENT: u nremarkable.?Oral cavity: n o lesions, mucosa moist and WNL, no erythema. N aleksey: s upple, no lymphadenopathy. C hest: n ormal shape and expansion. H eart: R SR, no ectopics, no murmurs, BP 90/60. L ungs: c lear to auscultation. N eurologic Exam: I ntact, gait normal. S kin: n ormal, no rash. P eripheral pulses: n ormal . E xtremities:?no leg edema. Assessment: * Assessment: 1. C hronic tension-type headache, intractable - G44.221 2 . F ibrocystic breast disease (FCBD), unspecified laterality - N60.19 3 . S creen for colon cancer - Z12.11 4 . B reast screening - Z12.39 5 . C ervicalgia - M54.2 6 . G eneralized anxiety disorder - F41.1 7 . S ituational depression - F43.21 8 . B OR 21.0-21.9, adult - Z68.21 Plan: * Treatment: 2.?Cervicalgia?LAB: P-Comprehensive Metabolic Panel (CMP) (Collection Date & Time - 08/11/2024 10:01 AM)?satisfactory* Value Reference Range A /G Ratio 2.0 1.1-2.5 - * A lbumin 4.4 3.5-5.3 - g/dL * A lkaline Phosphatase 83 35-121 - IU/L * A LT (SGPT) 18 <5-47 - IU/L * A ST (SGOT) 20 <5-40 - IU/L * B ilirubin, Total 0.4 <0.2-1.2 - mg/dL * B UN 13 8-23 - mg/dL * C alcium 9.6 8.6-10.4 - mg/dL * C hloride 103 97-108 - mmol/L * C O2 27 22-32 - mmol/L * C reatinine 0.75 0.50-1.00 - mg/dL * G lucose 58 L 65-99 - mg/dL * P otassium 4.5 3.5-5.3 - mmol/L * S odium 141 135-145 - mmol/L * P rotein 6.6 6.0-8.3 - g/dL * e GFR by Creatinine 91 >59 - mL/min/1.73m2 * Mary Alice Mckenzie 08/30/2024 02 :12:46 PM EDT > Patient informed of normal results. 3.?Generalized anxiety disorder? Refill ALPRAZolam Tablet, 0.5 MG, 1 tab(s), orally, 3 times a day, 90, Refills 2.?LAB: P-TSH (Collection Date & Time - 08/11/2024 10:01 AM)?Normal* Value Reference Range T SH 4.62 0.43-5.25 - mU/L * Mary Alice Mckenzie 08/30/2024 02 :12:46 PM EDT > Patient informed of normal results. ?LAB: CBC Venipuncture (in house) (Collection Date & Time - 08/11/2024)? Normal* Value Reference Range w bc 4.2 3.5 - 10 * l ymph 23.3% 15 - 50 * m id 6.8% 2 - 15 * g ran 69.9% 35 - 80 * r bc 4.76 3.5 - 5.5 * h gb 14.7 11.5 - 16.5 * h ct 44.7 35 - 55 * m cv 93.9 75 - 100 * m ch 31.0 25 - 35 * m chc 32.9 31 - 38 * p latlet 191 100 - 400 * Mary Alice Mckenzie 08/30/2024 02 :12:46 PM EDT > Patient informed of normal results. * Procedure Codes: G 2211 Complex e/[place] [address] CBC WITH AUTO DIFF, 65086 VENIPUNCT, ROUTINE*, G8783 BP SCR PRFRM RCMDD DEFIND SCR INTVL, G8752 MOST RECENT SYSTOLIC BP < 140MM HG, G8754 MOST RECENT DIASTOLIC BP < 90MM HG, G8420 BMI<30 AND >=22 CALC & DOCU * Follow Up: 4 Weeks * Images: Billing Information: * Visit Code: 53481 Office Visit, Est Pt., Level 4. * Procedure Codes: G2211 Complex e/[place]. [address] CBC WITH AUTO DIFF. 33236 VENIPUNCT, ROUTINE*. G8783 BP SCR PRFRM RCMDD DEFIND SCR INTVL. G8752 MOST RECENT SYSTOLIC BP < 140MM HG. G8754 MOST RECENT DIASTOLIC BP < 90MM HG. G8420 BMI<30 AND >=22 CALC & DOCU. * Electronic signature of Max Deutsch MD on 10/09/2024 at 09:56 AM EDT Sign off status: Pending * Provider: Max Deutsch M.D. Date: 08/11/2024 Generated for Printi ng/Famoisesg/eTransmitting on: 10/09/2024 09:56 AM EDT History and Physical Notes * HPI (History of Present Illness) Category Sub-Category Detail Notes Category Not es Cardiology Short of Breath Chest Pain Palpitations Dizziness episodic , sensation of imbalance , sensation of room spinning Examination Category Sub-Category Detail Notes Category Not es General Examination HEENT: unremarkable Heart: RSR, no ectopics, no murmurs, BP 90/60 Lungs: clear to auscultatio n Extremities: no leg edema General Appearance: NAD Skin: normal, no rash Neurologic Exam: Intact, gait normal Neck: supple, no lymphaden opathy Oral cavity: no lesions, mucosa m oist and WNL, no erythema Peripheral pulses: normal Chest: normal shape and exp ansion
--- OUTSIDE RECORDS SUMMARY | 2024-08-13 04:52 | XMS_ITS ---
Author Organization [facility] Address [address] [facility] [address] [facility] [address] [place] [id number] Care Team Providers Care Health And Fitness Professor Name Role Phone Max Deutsch Primary Care Provider REASON FOR VISIT due for screening Encounters Encounter Location Date Provider Diagnosis [facility] [address] [place], [place] [id number] 08/13/2024 Max Deutsch Plan Of Treatment Next Appt Details Provider Name:Max Herrera er, 12/11/2024 11:00:00 AM, [address], [address], [place], [id number], Progress Notes * CHAMP VAZQUEZOB:1965 (5 0 yo F)Acc No.[id number]:08/13/2024 Patient: CA DOWD :1965 A ge:59 Y S ex:Female Address:[address], [place] [address] Subjective: * Chief Complaints: * D ue for screening * Medical History: * Surgical History: * Hospitalization/Major Diagno stic Procedure: * Medications: Objective: * Vitals: * Physical Examination: Assessment: Plan: * Treatment: * Procedure Codes: * true * Date: Generated for Printi ng/Faxing/eTransmitting on: 0 10/09/2024 09:57 AM EDT
--- OUTSIDE RECORDS SUMMARY | 2024-09-08 07:30 | XMS_ITS ---
Author Organization [facility] Address [address] [facility] [address] [place] [id number] Care Team Providers Care Associate Product Integrity Engineer Name Role Phone Max Deutsch Primary Care Provider Allergies Allergen (clinical drug ingredient) Drug/Non Drug Allergy documented on EMR Reaction Allergy Type Onset Date Status indomethacin Indomethacin Unknown Drug Allergy A ctive nabumetone Relafen DS stomach pains Drug Allergy A ctive eletriptan Relpax chest pain Drug Allergy Activ e topiramate Topamax sob, fingers tingling Drug Allergy Active REASON FOR VISIT 4 weeks Medications Medication SIG (Take, Route, Frequency, Duration) Notes Start Date End Date Status Omeprazole 20 MG 1 capsule orally onc e a day; Duration: 90 days Active DULoxetine HCl 30 MG 1 cap(s) orally onc e a day; Duration: 90 days Active Promethazine HCl 25 MG 1 tab(s) orally t hree times a day as needed 07/01/2022 Active Excedrin Migraine 250-250-65 MG 2 tab(s) orally every 6 hours Active Metoprolol Succinate ER 25 MG 1 tablet Orally Once a day; Duration: 90 days Active ALPRAZolam 0.5 MG 1 tab(s) orally 3 ti mes a day 08/11/2024 Active Gabapentin 300 MG 2 cap(s) orally 3 ti mes a day Active MiraLax - 17 Grams Orally ONCE A DAY 02/16/2013 Active Qulipta 30 MG 1 tab(s) orally once a day Active Problems Problem Type SNOMED Code ICD Code Onset Dates Problem Status W/U Status Risk Notes Problem Dystonia (29268490) Other dystonia (G24.8) Active confirmed Vital Signs Blood pressure systolic 100 mm Hg 09/09/19 25 Blood pressure diastolic 60 mm Hg 025 Heart Rate 69 /min 09/08/2024 Height 67 in 09/08/2024 Weight 132 lbs 09/08/2024 BMI 20.67 kg/m2 09/08/2024 Encounters Encounter Location Date Provider Diagnosis [facility] [address] [facility] [address] [facility] [address] [place] [id number] 09/08/2024 Max Deutsch Migraine without aur a and without status migrainosus, not intractable G43.009 ; Other complicated headache syndrome G44.59 ; Generalized anxiety disorder F41.1 ; Other dystonia G24.8 and BMI 20.0-20.9, adult Z68.20 Assessments Encounter Date Diagnosis (ICD Code) Assessment Notes Treatment Notes Treatment Clinical Notes Section Notes 09/08/2024 Migraine without aura and without status migrainosus, not intractable (ICD-10 - G43.009) 09/08/2024 Other complicated headache syndrome (ICD-10 - G44.59) 09/08/2024 Generalized anxiety disorder (ICD-10 - F41.1) 09/08/2024 Other dystonia (ICD-10 - G24.8) 09/08/2024 BMI 20.0-20.9, adult (ICD-10 - Z68.20) 09/08/2024 Other Needs Lipid profile Plan Of Treatment Medication Medication Name Sig Start Date Stop Date Notes ALPRAZolam 0.5 MG 1 tab(s) orally 3 times a day 08/11/2024 Treatment Notes Assessment Notes Other Needs Lipid profile Next Appt Details Follow Up: 3 Months, Reason: Provider Name:Max Herrera er, 12/11/2024 11:00:00 AM, [facility], [address], [place], [phone], Progress Notes * CHAMP VAZQUEZOB:1965 ([age] yo F)Acc No.[id number]:09/08/2024 Progress Notes Patient: CA DOWD Provider: Max Deutsch M.D. :1965 A ge:59 Y S ex:Female Date:09/08/2024 Address:[facility] [place] [address], [place], [id number] Subjective: * Chief Complaints: * 1 . 4 weeks. * HPI: P sychology: 59 year old female presents with c/o Anxiety P t here to f/u on Anxiety. Pt complains of some stress off and on. Pt states she is having one of her bad migaines today. Her symptoms fluctuate. Some recent concerns with 21 y.o. granddaughter. Doreen issues.. * ROS: D ERMATOLOGY: no R juan. [...] * Hospitalization/Major Diagno stic Procedure: M igrane- [facility] 04/2013, Fall- [facility] 2018, Lt Arm Injury, Fell- [facility] 01/2019, [facility], Headache- [facility] 11/2019, Headache- [facility] 11/2019. * Family History: F ather: [...] tab(s) orally every 6 hours , Taking ALPRAZolam 0.5 MG Tablet 1 tab(s) orally 3 times a day , Taking Metoprolol Succinate ER 25 MG Tablet Extended Release 24 Hour 1 tablet Orally Once a day , Taking DULoxetine HCl 30 MG Capsule Delayed Release Particles 1 cap(s) orally once a day , Taking Omeprazole 20 MG Capsule Delayed Release 1 capsule orally once a day , Taking Promethazine HCl 25 MG Tablet 1 tab(s) orally three times a day as needed , Medication List reviewed and reconciled with the patient * Allergies: R elpax: chest pain, Topamax: sob, fingers tingling, Indomethacin, Relafen DS: stomach pains. Objective: * Vitals: W t: 132, Temp: 97.3, BP: 100/60, HR: 69, Nurse: carli, Ht: 67, BMI:20.67. * Examination: G eneral Examination: General Appearance: N AD. H EENT: u nremarkable.?Oral cavity: n o lesions, mucosa moist and WNL, no erythema. N aleksey: s upple, no lymphadenopathy. C hest: n ormal shape and expansion. H eart: R SR, no ectopics, no murmurs. L ungs: c lear to auscultation. N eurologic Exam: I ntact, gait normal. S kin: n ormal, no rash. P eripheral pulses: n ormal . E xtremities: n o leg edema. Assessment: * Assessment: 1. M igraine without aura and without status migrainosus, not intractable - G43.009 ?2. O ther complicated headache syndrome - G44.59 3 . G eneralized anxiety disorder - F41.1 4 . O ther dystonia - G24.8 5 . B ID 20.0-20.9, adult - Z68.20 Plan: * Treatment: 2. O thers Notes: Needs Lipid profile * Procedure Codes: G 2211 Complex e/m visit add on, 1036F TOBACCO NON-USER, G8420 BMI<30 AND >=22 CALC & DOCU, G8783 BP SCR PRFRM RCMDD DEFIND SCR INTVL, G8752 MOST RECENT SYSTOLIC BP < 140MM HG, G8754 MOST RECENT DIASTOLIC BP < 90MM HG * Follow Up: 3 Months * Images: Billing Information: * Visit Code: 21395 Office Visit, Est Pt., Level 4. * Procedure Codes: G2211 Complex e/m visit add on. 1036F TOBACCO NON-USER. G8420 BMI<30 AND >=22 CALC & DOCU. G8783 BP SCR PRFRM RCMDD DEFIND SCR INTVL. G8752 MOST RECENT SYSTOLIC BP < 140MM HG. G8754 MOST RECENT DIASTOLIC BP < 90MM HG. * Electronic signature of Max Deutsch MD on 10/09/2024 at 09:57 AM EDT Sign off status: Pending * Provider: Max Deutsch M.D. Date: 0 09/08/2024 Generated for Carole argueta/Deangelo/Bravoitting on: 0 10/09/2024 09:57 AM EDT History and Physical Notes * HPI (History of Present Illness) Category Sub-Category Detail Notes Category Not es Psychology Anxiety Pt here to f/u o n Anxiety. Pt complains of some stress off and on. Pt states she is having one of her bad migaines today. Her symptoms fluctuate. Some recent concerns with 21 y.o. granddaughter. Doreen issues. Examination Category Sub-Category Detail Notes Category Not es General Examination HEENT: unremarkable Heart: RSR, no ectopics, no murmurs Lungs: clear to auscultatio n Extremities: no leg edema General Appearance: NAD Skin: normal, no rash Neurologic Exam: Intact, gait normal Neck: supple, no lymphaden opathy Oral cavity: no lesions, mucosa m oist and WNL, no erythema Peripheral pulses: normal Chest: normal shape and exp ansion
--- OUTSIDE RECORDS SUMMARY | 2024-09-11 08:20 | XMS_ITS | Encounter Summary ---
Author Organization Healthcare Address [address] [place] [address] Care Team Providers Care Weight Clerk Name Role Phone Александр Deutsch MD Primary Care Provider [phone] Reason for Referral * Other Medical (Routine) - Pending Review Specialty Diagnoses / Procedures Referred By Willy britt Referred To Contact Diagnoses Cervical dystonia Procedures Botox Dystonia Devan Herman MD [id number] [place] [address] Phone: tel: fax: Referral ID Status Reason Start Date Expiration Date V isits Requested Visits Authorized [id number] Pending Review 09/11/2024 03/13/2026 1 1 Reason for Visit * Consultation (Routine) - Closed Specialty Diagnoses / Procedures Referred By Willy britt Referred To Contact Neurology Diagnoses Dystonic tremor Dorita Altamirano, PA [address] [facility] [address] [place] [address] Phone: tel: fax: [facility] [address] [place] [address] Phone: tel: fax: Referral ID Status Reason Start Date Expiration Date V isits Requested Visits Authorized [id number] Closed Specialty Services Required 01/11/2024 07/12/2025 1 1 Encounter Details Date Type Department Care Team (Late st Contact Info) Description 09/11/2024 8:20 AM EDT Consult [place] [facility] [address] [place] [address] Devan Herman MD [address] [place] [address] Cervical dystonia (Primary Dx) Social History Tobacco Use Types Packs/Day Years Used Date Smoking Tobacco: Never Smokeless Tobacco: Never Alcohol Use Standard Drinks/Week Comments Never 0 (1 standard drink = 0.6 oz pur e alcohol) Comments Unknown Sex and Gender Information Value Date Recorded Sex Assigned at Not on file Legal Sex Female 7:41 PM EDT Gender Identity Not on file Sexual Orientation Not on file documented as of this encounter Last Filed Vital Signs Vital Sign Reading Time Taken Comments Blood Pressure 106/72 09/11/2024 8:08 AM EDT Pulse 76 09/11/2024 8:08 AM EDT Temperature - - Respiratory Rate - - Oxygen Saturation 99% 09/11/2024 8:08 AM EDT Inhaled Oxygen Concentration - - Weight 62.1 kg (136 lb 14.5 oz) 09/11/2024 8:08 AM EDT Height 172.7 cm (5' 8 ) 09/11/2024 8:08 AM EDT Body Mass Index 20.82 09/11/2024 8:08 AM EDT documented in this encounter Miscellaneous Notes * Assessment & Plan Note - Devan Herman MD - 09/11/2024 8:20 AM EDTAssociated Problem(s): Cervical dystonia Orders: Botox Dystonia; Future * Progress Notes - Devan Herman MD - 09/11/2024 8:20 AM EDT Dear Dorita Altamirano, PA, I had the pleasure of seeing Gracie Bowen who is a 59 y.o. female being seen at the [facility] today for cervical dystonia. HPI 59 year old woman with h/o chronic migraine, b/l occipital neuralgia presented for management of cervical dystonia. Referred by JULIUS Schwartz, Neuro, [place]. Also is following with headache specialist at , Dr. Costello. Was evaluated by Dr. Hyde in the past. She is currently not working because of chronic migraine. Lives at home with her . Nkda Adopted: unsure of the family history. Is on Quilipta for migraine. Received nerve block injections for occipital neuralgia: it did not help but other non-injected muscles were bothering later. She states that 3 years ago, she started having intermittent head quivering (vertical, A-P). For the last 1 year, head quivering has been constant. Especially happens in the evenings and night (better when she wakes up in the morning and gets worse as the day progresses). Associated with discomfort in posterior neck region (especially at the end of the day). Associated with occasional dysphagia and choking episodes. She can control the head quivering by holding back on the shoulders. She also complains of difficulty turning the head to the left. She feels more comfortable turning the head to the right. Denies anosmia, bladder or bowel symptoms, gait impairment. MRI brain 2017: reported to be normal. O/E: Cervical dystonia with tremor: Right torticollis Left laterocollis: very very mild. No-no head tremor: very mild, intermittent. No sensory trick. Null point: mild right head rotation. No dystonia anywhere else in the body Normal handwriting. No signs of parkinsonism. Normal eye movements, coordination, stance, gait. IMPRESSION: Cervical dystonia with tremor. PLAN: Botox EMG guided Wednesday PM Total dose required: 50 units. Plan would be to inject: R Splenius capitis: 15 Splenius cervicis: 15 Note: injecting lower doses because patient mentioned that she is very sensitive to any injections and doses (based on the past experience of nerve blocks). Educated her that oral medications for dystonia are not a good choice here, given systemic side effects. Botox injections can be combined with physical therapy to get maximum benefit. Social History Tobacco Use Smoking status: Never Smokeless tobacco: Never Substance Use Topics Alcohol use: Never Medications Ordered Prior to Encounter[1] Allergies[2] All medications have been reviewed today. Review of Systems All other systems reviewed and are negative. Objective Vitals: 09/11/24 0808 BP: 106/72 Pulse: 76 SpO2: 99% Assessment & Plan Cervical dystonia Orders: Botox Dystonia; Future Counseling Documentation: The patient was counseled regarding risks and benefit of treatment options, instructions for management, patient and family education, and impressions. Education provided was written instructions andverbal counseling. Additional time was spent in care coordination including medical record review. The total time of encounter was 60 minutes and greater than 50% of the visit was spent in counseling/coordination of care. . [1] Current Outpatient Medications on File Prior to Visit Medication Sig Dispense Refill ALPRAZolam (Xanax) 0.5 MG tablet Take 1 tablet (0.5 mg) by mouth 3 (three) times a day. dmewrvr-evxjtqbvnqhbd-cvrafzzc (Excedrin Migraine) 250-250-65 MG tablet every 6 (six) hours. (Patient taking differently: as needed.) Atogepant (Qulipta) 30 MG tablet Take 1 tablet by mouth Daily. DULoxetine (Cymbalta) [address] capsule Take 1 capsule (30 mg) by mouth Daily. gabapentin (Neurontin) 300 MG capsule Take 2 capsules (600 mg) by mouth in the morning and 2 capsules (600 mg) at noon and 2 capsules (600 mg) in the evening and 2 capsules (600 mg) before bedtime. 240 capsule 2 metoprolol succinate XL (Toprol-XL) 25 MG 24 hr tablet omeprazole (PriLOSEC) [address] capsule Take 1 capsule (20 mg) by mouth 1 (one) time each day. promethazine (Phenergan) 25 MG tablet as needed. SUMAtriptan (Imitrex) 100 MG tablet Take 1 tablet by mouth 1 time as needed for migraine (may repeat x1). 9 tablet 5 ubrogepant (Ubrelvy) 50 MG tablet Take 1 tablet (50 mg) by mouth 1 (one) time if needed for migraine. After 2 hours, a second dose may be taken if needed. Maximum dose: 200 mg in 24-hour period. 10 tablet 11 metoprolol tartrate (Lopressor) 25 MG tablet Take 1 tablet (25 mg) by mouth 1 (one) time each day. (Patient not taking: Reported on 09/11/2024) No current facility-administered medications on file prior to visit. [2] Allergies Allergen Reactions Nabumetone Itching Amitriptyline Other - please document in the comment field BAD DREAMS Bupropion Rash CAN'T TAKE Butalbital-Acetaminophen Rash CAN'T TAKE Eletriptan Other - please document in the comment field and Rash CAN'T TAKE Indomethacin Rash and Unknown - Patient states they do not know rxn details CAN'T TAKE Topiramate Rash CAN'T TAKE Tramadol Rash CAN'T TAKE documented in this encounter Plan of Treatment Upcoming Encounters Date Type Department Care Team (Late st Contact Info) Description 01/29/2025 11:00 AM EST Office Visit [place] [facility] [address] [place] [address] Geena Costello, DO [address] [place] [address] Scheduled Orders Name Type Priority Associated Diagnoses Orde r Schedule Botox Dystonia Procedures Routine Cervical dystonia Expected: 09/11/2024 (Approximate), Expires: 03/15/2026 documented as of this encounter Visit Diagnoses Diagnosis Cervical dystonia- Primary Spasmodic torticollis documented in this encounter Additional Health Concerns Assessment Noted Time A fall risk assessment has been complete d for the patient 09/11/2024 8:08 AM EDT A Body Mass Index follow-up plan has been documented for the patient 09/11/2024 9:08 AM EDT documented as of this encounter Care Teams Weight Clerk Relationship Specialty Start Date End Date Александр Deutsch MD [address] [place], [place] [address] PCP - General 07/26/20 documented as of this encounter
--- NOTE | 2024-10-09 09:51 | MM_ITS ---
PROCEDURE INFORMATION: Exam: MG Bilateral Screening 3D Mammography Exam date and time: 10/09/2024 9:54 AM Age: 59 years old Clinical indication: Screening examination TECHNIQUE: Imaging protocol: Bilateral Screening tomosynthesis and 2D mammography including computer-aided detection (CAD) when performed. COMPARISON: 1. MG MM DIG SCREENING MAMM BI W/CAD 06/24/2022 10:35 AM 2. MG MM DIG SCREENING MAMM BI W/CAD 02/20/2021 1:09 PM FINDINGS: MAMMOGRAPHY: Breast composition: The breasts are extremely dense, which lowers the sensitivity of mammography. Mass: No suspicious masses. Architectural distortion: None. Calcifications: No suspicious calcifications. Asymmetric density: None. Skin thickening: None. Axillary adenopathy: None. IMPRESSION: No mammographic evidence of malignancy. Annual screening is recommended unless otherwise clinically indicated. ASSESSMENT: BI-RADS Category 1: Negative.
--- OUTSIDE RECORDS SUMMARY | 2024-10-09 09:56 | XMS_ITS | Encounter Summary ---
Author Organization Healthcare Address [address] [id number] Care Team Providers Care Supervisor Of Guidance And Testing Name Role Phone Александр Deutsch MD Primary Care Provider [phone] Encounter Details Date Type Department Care Team (Late st Contact Info) Description 08/21/2024 Telephone [place] [facility] [address] [place] [address] Nurys Araya, ISMAEL [address] [id number] Social History Tobacco Use Types Packs/Day Years [...] on file documented as of this encounter Miscellaneous Notes * Telephone Encounter - Mary Owusu - 08/21/2024 2:15 PM EDT Patient Phone Message Reason for Call: Best contact number and optimal time of day to reach caller: Note: Please do not reply to this message. Follow-up communication and further actions as a result of this message need to be communicated with the patient directly, if the patient is not active onMyChart. If the patient is active on MyChart, they will receive notification of the communication/outcome via tibdithart. documented in this encounter Plan of Treatment Upcoming Encounters Date Type Department Care Team (Late st Contact Info) Description 01/29/2025 11:00 AM EST Office Visit [place] [facility] [address] [place] [address] Geena Costello L, DO [address] [place] [address] documented as of this encounter Visit Diagnoses Not on filedocumented in this encounter Additional Health Concerns Assessment Noted Time A fall risk assessment has been complete d for the patient 07/24/2024 10:22 AM EDT A Body Mass Index follow-up plan has been documented for the patient 07/24/2024 11:42 AM EDT documented as of this encounter Care Teams Supervisor Of Guidance And Testing Relationship Specialty Start Date End Date Александр Deutsch MD [address] [place] [id number] PCP - General 07/26/20 documented as of this encounter
--- OUTSIDE RECORDS SUMMARY | 2024-10-09 09:56 | XMS_ITS | Encounter Summary ---
Author Organization [facility] Address [address] [place] [address] Care Team Providers Care Getter Operator Name Role Phone Александр Deutsch MD Primary Care Provider [phone] Reason for Visit * Reason Onset Date Comments Med Refill 09/12/2024 Encounter Details Date Type Department Care Team (Late Contact Info) Description 09/12/2024 Refill [facility] [address] [place] [address] Sonu Costelloa L, DO [address] [place] [address] Bilateral occipital neuralgia; Other generalized epilepsy and epileptic syndromes, not intractable, without status epilepticus (CMS/HCC); Intractable chronic migraine without aura and without status migrainosus Social History Tobacco Use Types Packs/Day Years [...] on file documented as of this encounter Plan of Treatment Upcoming Encounters Date Type Department Care Team (Late st Contact Info) Description 01/29/2025 11:00 AM EST Office Visit [facility] [address] [place] [address] Pravin, Geena L, DO [address] [place] [address] documented as of this encounter Visit Diagnoses Diagnosis Bilateral occipital neuralgia Other generalized epilepsy and epileptic syndromes, not intractable, without status epilepticus (CMS/HCC) Intractable chronic migraine without aura and without status migrainosus documented in this encounter Additional Health Concerns Assessment Noted Time A fall risk assessment has been complete d for the patient 09/11/2024 8:08 AM EDT A Body Mass Index follow-up plan has been documented for the patient 09/11/2024 9:08 AM EDT documented as of this encounter Care Teams Getter Operator Relationship Specialty Start Date End Date Александр Deutsch MD [address] [place] [id number] PCP - General 07/26/20 documented as of this encounter
--- OUTSIDE RECORDS SUMMARY | 2024-10-09 09:56 | XMS_ITS | Encounter Summary ---
Author Organization [facility] Address [address] [place] [address] Care Team Providers Care Technical Agronomist Name Role Phone Александр Deutsch MD Primary Care Provider [phone] Encounter Details Date Type Department Care Team (Latest Contact Info) Description 09/11/2024 Travel Social History Tobacco Use Types Packs/Day Years [...] Description 01/29/2025 11:00 AM EST Office Visit [place] [facility] [address] [place] [address] Geena Costello, DO [address] [place] [address] documented as of this encounter Visit Diagnoses Not on filedocumented in this encounter Additional Health Concerns Assessment Noted Time A fall risk assessment has been complete d for the patient 09/11/2024 8:08 AM EDT A Body Mass Index follow-up plan has been documented for the patient 09/11/2024 9:08 AM EDT documented as of this encounter Care Teams Technical Agronomist Relationship Specialty Start Date End Date Александр Deutsch MD [address] [place] [id number] PCP - General 07/26/20 documented as of this encounter
--- OUTSIDE RECORDS SUMMARY | 2024-10-09 09:56 | XMS_ITS | Clinical Summary ---
Author Organization [facility] Address [address] [place] [address] Care Team Providers Care Hat Trimmer Name Role Phone Александр Deutsch MD Primary Care Provider Allergies Active Allergy Reactions Criticality Noted Date Comments Amitriptyline Other - please docum ent in the comment field Low 05/14/2019 BAD DREAMS Bupropion Rash Low 05/14/2019 CAN'T TAKE Butalbital-Acetaminophen Rash Low 05/14/2019 CAN'T TAKE Eletriptan Other - please docum ent in the comment field,Rash Low 05/14/2019 CAN'T TAKE Indomethacin Rash,Unknown - Patie nt states they do not know rxn details Low 05/14/2019 CAN'T TAKE Nabumetone Itching Medium 01/03/2024 Topiramate Rash Low 05/14/2019 CAN'T TAKE Tramadol Rash Low 05/14/2019 CAN'T TAKE Medications ALPRAZolam (Xanax) 0.5 MG tablet Take 1 tablet (0.5 mg) by mouth 3 (three) times a day. 09/22/19 24 Active aspirin-acetami nophen-caffeine (Excedrin Migraine) 250-250-65 MG tablet every 6 (six) hours. Active Atogepant (Qulipta) 30 MG tablet Take 1 tablet by mouth Daily. Active DULoxetine (Cymbalta) [address] capsule Take 1 capsule (30 mg) by mouth Daily. Active metoprolol succinate XL (Toprol-XL) 25 MG 24 hr tablet Acti ve metoprolol tartrate (Lopressor) 25 MG tablet Take 1 tablet (25 mg) by mouth 1 (one) time each day. Active omeprazole (PriLOSEC) [address] capsule Take 1 capsule (20 mg) by mouth 1 (one) time each day. Active SUMAtriptan (Imitrex) 100 MG tablet Take 1 tablet by mouth 1 time as needed for migraine (may repeat x1). 9 tablet 5 07/31/19 25 Active promethazine (Phenergan) 25 MG tablet as needed. 08/29/19 25 Active gabapentin (Neurontin) 300 MG capsuleIndicati ons:Bilateral occipital neuralgia,Other generalized epilepsy and epileptic syndromes, not intractable, without status epilepticus (CMS/HCC) Take 2 capsules by mouth 4 times a day. 240 capsule 5 09/13/19 25 Active ubrogepant (Ubrelvy) 100 MG tablet Take 1 tablet by mouth 1 time as needed for migraine. After 2 hours, a second dose may be taken if needed. Maximum dose: 200 mg in 24-hour period. 10 each 11 09/13/19 25 Active ubrogepant (Ubrelvy) 50 MG tabletIndicatio ns:Intractable chronic migraine without aura and without status migrainosus Take 1 tablet (50 mg) by mouth 1 (one) time if needed for migraine. After 2 hours, a second dose may be taken if needed. Maximum dose: 200 mg in 24-hour period. 10 tablet 11 01/03/20 24 025 Discontinued gabapentin (Neurontin) 300 MG capsuleIndicati ons:Bilateral occipital neuralgia,Other generalized epilepsy and epileptic syndromes, not intractable, without status epilepticus (CMS/HCC) Take 2 capsules (600 mg) by mouth in the morning and 2 capsules (600 mg) at noon and 2 capsules (600 mg) in the evening and 2 capsules (600 mg) before bedtime. 240 capsule 2 05/27/19 25 025 Discontinued(Re order) Active Problems Problem Noted Date Diagnosed Date Intractable chronic migraine without aura and without status migrainosus 07/24/2024 Bilateral occipital neuralgia 07/24/2024 Cervical dystonia 07/24/2024 Assessment & Plan (09/11/2024 8:58 AM EDT): Orders: Botox Dystonia; Future Dystonic tremor 07/24/2024 Other generalized epilepsy a nd epileptic syndromes, not intractable, without status epilepticus 07/24/2024 Encounters Date Type Department Care Team Description 09/12/2024 Refill [facility] [address] [place] [phone] Geena Costello DO Bilateral occipital neuralgia; Other generalized epilepsy and epileptic syndromes, not intractable, without status epilepticus (CMS/HCC); Intractable chronic migraine without aura and without status migrainosus 09/11/2024 8:20 AM EDT Consult [facility] [address] [place] [phone] Devan Herman MD Cervical dystonia (Primary Dx) 09/11/2024 Travel 08/21/2024 Telephone [facility] [id number] [place] [phone] Nurys Araya MBBS 07/24/2024 10:30 AM EDT Office Visit [facility] [id number] [place] [phone] Geena Costello DO Bilateral occipital neuralgia (Primary Dx); Intractable chronic migraine without aura and without status migrainosus; Cervical dystonia; Dystonic tremor; Other generalized epilepsy and epileptic syndromes, not intractable, without status epilepticus (CMS/HCC) 07/24/2024 Travel from Last 3 Months Immunizations Immunization Administration Dates Next Due Influenza, injectable, quadrivalent 01/18/2020,1 Influenza, injectable, quadrivalent, preservativ e free 01/17/2020 Influenza, recombinant, quad rivalent, injectable, preservative free 12/30/2021 Social History Tobacco Use Types Packs/Day Years Used Date Smoking Tobacco: Never Smokeless Tobacco: Never Tobacco Cessation:Counseling Given: Not Answered Alcohol Use Standard Drinks/Week Comments Never 0 (1 standard drink = 0.6 oz pur e alcohol) Comments Unknown Sex and Gender Information Value Date Recorded Sex Assigned at Not on file Legal Sex Female 7:41 PM EDT Gender Identity Not on file Sexual Orientation Not on file Last Filed Vital Signs Vital Sign Reading [...] Mass Index 20.82 09/11/2024 8:08 AM EDT Plan of Treatment Upcoming Encounters Date Type Department Care Team (Late st Contact Info) Description 01/29/2025 11:00 AM EST Office Visit [place] [facility] [address] [place] [address] Geena Costello, DO [address] [place] [address] Health Maintenance Due Date Last Done Comments [facility]-Depression Screening 1964 [facility]-HIV Screening 1964 [facility]-Hepatitis C Screening 1964 [facility]-Medicare Annual Wellness (AWV) 1964 [facility]-/Child/Adol SDOH Screenings 1964 [facility]- SDOH Screenings 1982 [facility]-Adult SDOH Screenings 1982 [facility]-DTaP,Tdap,and Td Vaccines (1 - Tdap) 07/16/1983 [facility]-Pap Smear 1985 [facility]-Cervical Cancer Screening 1994 [facility]-HPV/Cotest 1994 CT Colonography 2009 Colonoscopy 2009 FIT-DNA 2009 FIT 2009 FOBT 2009 Sigmoidoscopy 2009 [facility]-Colorectal Cancer Screening 2009 [facility]-Breast Cancer Screening 2014 [facility]-Pneumococcal Vaccine: 50+ Years (1 of 1 - PCV) 2014 [facility]-Zoster Vaccines (1 of 2) 2014 [id number] Vaccine ( season) 2023 02/18/2021, 07/03/2020, 06/07/2020 [facility]-Influenza Vaccine (#1) 11/13/202412/30, 01/18/2020, 01/17/2020, Additional history exists [facility]-RSV Vaccine: 60+ Years or (1 - 1-dose 75+ series) 07/16/2039 HPV Vaccines Aged Out No longer eligi ble based on patient's age to complete this topic [facility]-HIB Vaccines Aged Out No longer e ligible based on patient's age to complete this topic [facility]-Hepatitis A Vaccines Aged Out No longer eligible based on patient's age to complete this topic [facility]-IPV Vaccines Aged Out No longer e ligible based on patient's age to complete this topic [facility]-Rotavirus Vaccines Aged Out No lo nger eligible based on patient's age to complete this topic Insurance [facility] MEDICARE Care Teams Hat Trimmer Relationship Specialty Start Date End Date Александр Deutsch MD [address] [place] [address] PCP - General 07/26/20
--- OUTSIDE RECORDS SUMMARY | 2024-10-09 09:56 | XMS_ITS | Data Portability ---
Author Organization [facility] Address [address] [place] [address] Care Team Providers Care Can Closing Machine Tender Name Role Phone Mynor GARNER Primary Care Provider Mynor GARNER Referring Provider Assessment Encounter Date Assessment Date Assessment LastModified by Organization Details LastModified Time 01/25/2020 01/25/2020 This is a 54-year-old female seen today for evaluation and treatment related to cervical occipital headaches and myofascial thoracic spine pain. She describes tightness and spasm over the neck and shoulders bilaterally. This is associated with occipital headaches. She experiences migraine headaches as well. She does treat with neurology. 1. No cervical spine imaging is present for review today. 2. Brain MRI was reportedly normal. Medication management currently consists of ibuprofen, Imitrex, baclofen, Cymbalta, and gabapentin. She takes alprazolam for anxiety. Risk assessment is low. She has undergone greater occipital nerve blocks with minimal benefit. Presentation is consistent with migraine headaches and occipital neuralgia versus cervical spondylosis. She has quite a bit of muscle tension over the trapezius, levator scapula, and rhomboids as well. I recommend trigger point injections in the cervical and thoracic spine. Pending results I would consider cervical MBB with progression to RFA if diagnostic. Botox is also a consideration. Much of this encounter is an electronic copywriter/tr anslation of spoken language to printed text. The electronic translation of spoken language may permit erroneous or at times nonsensical words of phrases to be inadvertently transcribed; Although I have reviewed the note for such errors, some may still exist. [email or web address] Not available 01/25/2020 11:15:14 Plan of Treatment Reminders Order Date Submit Date Provider Last Modified By Organization Details Last Modified Time Details Appointments None recorded. Lab None recorded. Referral None recorded. Procedures injection , trigger point (PROC) 020 020 [email or web address] Not available 0 14:56:42 Surgeries None recorded. Imaging None recorded. Medication Orders None recorded. Patient TargetsNo targets recorded. Patient Instructions Encounter Date Encounter Id Patient Instructions Last Modified By Organization Details Last Modified Time 01/25/2020 [id number] medical record request* - Request cervical MRI from [facility]. Please fax back record to [facility] . Thank you! [email or web address] Not available 02/20/2020 11:24:31 Reason for Referral None Reported. Results Created Date Observation Date Name Description Value Unit Range Abnormal Flag Note LastModifiedBy Organization Detail LastModifiedTime 01/29/20 20 07/16/2016 MRI, cervi dean spine , w/o contr ast No observ ation record ed. [facility] Records [id number], [place], [address], 01/31/2020 13:04:45 Result Notes None recorded. Problems Name Problem SNOMED Code Status Onset Date Resolution Date Notes Provider Name and Address Organization Details Recorded Time Migraine 29030917 Active 020 BYRON Mcintyre - [facility] 0 10:32:57 Neck pain 30578700 Active 020 BYRON Mcintyre - [facility] 0 10:33:03 Problem Notes None recorded. Medical Equipment None Reported. Allergies No known drug allergies Medications Name Sig Start Date Stop Date Status Note LastModified by Organization Details LastModified Time quetiapine 25 mg tablet 01/23 completed Not Available Not Available Not Available cyclobenzaprine 10 mg tablet 01/23 completed Not Available Not Available Not Available prednisone 10 mg tablet active Not Available Not Available Not Available gabapentin 600 mg tablet 01/23 completed Not Available Not Available Not Available prednisone 20 mg tablet 01/23 completed Not Available Not Available Not Available prednisone 5 mg tablet 01/23 completed Not Available Not Available Not Available sumatriptan 50 mg tablet active Not Available Not Available No t Available clotrimazole 1 % vaginal cream active Not Available Not Availabl e Not Available ketorolac 10 mg tablet 01/23 completed Not Available Not Available Not Available alprazolam 0.25 mg tablet active Not Available Not Available No t Available gabapentin 800 mg tablet active Not Available Not Available No t Available sulfacetamide sodium 10 % eye drops 01/23 completed Not Available Not Available Not Available baclofen 10 mg tablet 01/23 completed Not Available Not Available Not Available promethazine 25 mg tablet active Not Available Not Available No t Available indomethacin 25 mg capsule active Not Available Not Available N ot Available gabapentin 300 mg capsule 01/23 completed Not Available Not Available Not Available omeprazole 20 mg capsule,delayed release active Not Available Not Available Not Available hydrochlorothiaz tom 25 mg tablet active Not Available Not Avail able Not Available metoprolol succinate ER 25 mg tablet,extended release 24 hr active Not Available Not Availabl e Not Available ibuprofen 600 mg tablet active Not Available Not Available Not Available methylprednisolo ne 4 mg tablets in a dose pack 01/23 completed Not Available Not Available Not Available duloxetine 30 mg capsule,delayed release active Not Available Not Available Not Available duloxetine 60 mg capsule,delayed release 01/24 completed Not Available Not Available Not Available tizanidine 6 mg capsule active Not Available Not Available Not Available Flucelvax Quad (PF) 60 mcg (15 mcg x 4)/0.5 mL IM syringe active Not Available Not Available Not Available Ajovy 225 mg/1.5 mL subcutaneous auto-injector active Not Available Not Availabl e Not Available Fluzone Quad (PF) 60 mcg (15 mcg x 4)/0.5 mL IM syringe active Not Available Not Available Not Available Vitals Date Recorded Body height Body mass index (BMI) Body weight Provider Name and Address Organization Details Last Updated DateTime 01/25/2020 170.18 cm 23.5 kg/m2 31825.86 g Maria Guadalupe Ch [facility] 01/25/2020 10:30:02 Social History Question Answer Notes LastModified by Organizat ion Details LastModified Time Tobacco Smoking Status Never Smoker Maria Guadalupe sumner [facility] 01/25/2020 10:30:38 What Is Your Level Of Caffeine Consumption? Occasional Information not available 01/25/2020 How Much Tobacco Do You Chew? None [email or web address] Information not available 01/25/2020 Are You Deaf Or Do You Have Serious Difficulty Hearing? No [email or web address] Information not available 01/25/2020 Which Illicit Or Recreational Drugs Have You Used? None [email or web address] Information not available 01/25/2020 Hard Of Hearing Or Deaf In One Or Both Ears? No [email or web address] Information not available 01/25/2020 Prescription Drug Abuse No [email or web address] Information not available 01/25/2020 Disability Yes [email or web address] Information no t available 01/25/2020 Marital Status [email or web address] Informatio n not available 01/25/2020 General Stress Level Medium [email or web address] Information not available 01/25/2020 Do You Have Difficulty Walking Or Climbing Stairs? No [email or web address] Information not available 01/25/2020 Sex: Unknown Functional Status Question Answer Note LastModified by [employer] ion Details LastModified Time What is your level of alcohol consumption? None [email or web address] Information not available 01/25/2020 Do you have difficulty doing errands alone? Yes [email or web address] Information not available 01/25/2020 What is your occupation? unemployed [email or web address] Information not available 01/25/2020 Do you have difficulty dressing, bathing, grooming, or toileting? Yes [email or web address] Information not available 01/25/2020 What is your exercise level? Occasional [email or web address] Information not available 01/25/2020 Mental Status Question Answer Note LastModified by Organization D etails LastModified Time Do you have difficulty concentrating, remembering or making decisions? No [email or web address] Information no t available 01/25/2020 Family History Nothing Reported. Medical History Condition Response Bipolar Disease N Coronary Artery Disease N Gout N Seizure Disorder Y Atrial Fibrillation N Thyroid Disease N Hernia N Head Trauma/Injury Y COPD N Depression Y Anxiety Disorder Y Acid Reflux (GERD) Y Cancer N Skin Disorder N Stroke N High Cholesterol N Liver Disease N Rheumatoid Arthritis N Headaches Y Fibromyalgia Y Autoimmune Disease N Kidney Disease N Osteoarthritis N Neurosurgery N DVT N Peptic Ulcer Disease N Anemia N Heart Attack (MD) N Diabetes N Cardiomyopathy N Bleeding Disorder N CHF N AIDS/HIV N Inflammatory Bowel Disease Y Dementia N Asthma N Substance Abuse N Sleep Apnea N Hepatitis N Heart Disease Y Pulmonary Embolism N Chronic Low Back Pain N Hypertension N Osteoporosis N Gynecological HistoryNo gynecological history recorded. Obstetrics History GPAL:G 0 P 0 0 0 0 Past Encounters Encounter ID Performer Location Encounter Start Date Encounter Closed Date Diagnosis/Indication Diagnosis SNOMED-CT Code Diagnosis ICD10 Code Diagnosis Note [id number] Jitendra Irwin MD [facility] [address] [address] [place] [address] 01/25/2020 09:59:08 01/25/2020 11:31:21 Neck pain 32479877 M54.2 Myofascial pain syndrome of neck 141708833 M54.2 Cervico-oc cipital neuralgia 65221056 M54.81 Health Concerns Section Related Observation LastModified by Organization Detai ls LastModified Time None Recorded Concern Status LastModified by Organization Details LastModified Time None Recorded Advance Directives Directive None Recorded Payers Insurance Date Sequence Insurance Name Policy Number Policy Rodriguez Covered Member ID Rodriguez Member ID Guarantor Name 01/22/2020 2 [place] Gracie True [id number] Gracie True 01/22/2020 1 R [id number] Kd [place] True [id number] Graice True OBGyn Episode No OBEpisode recorded.
--- OUTSIDE RECORDS SUMMARY | 2024-10-09 09:56 | XMS_ITS | Data Portability ---
Author Organization [facility]OS[facility] Address [address] [facility] [address] [place] [address] Assessment Encounter Date Assessment Date Assessment LastModified by Organization Details LastModified Time 07/14/2016 07/14/2016 06/30/16 MRI brain w/o: normal; mid-sagital views show straightening of the cervical spine with mild degenerative changes; no Chiari, no white matter disease, no atrophy, no ischemic/restric wander diffusion, no masses or mass effect. - viewed on CD today; pt counseled on findings as noted above but with straightening of the cervical spine most likely from spasms in the neck [email or web address] Not available 07/14/2016 15:38:53 02/02/2017 02/02/2017 06/30/16 MRI brain w/o: normal; mid-sagital views show straightening of the cervical spine with mild degenerative changes; no Chiari, no white matter disease, no atrophy, no ischemic/restric wander diffusion, no masses or mass effect. - viewed on CD previously: pt counseled on findings as noted above but with straightening of the cervical spine most likely from spasms in the neck [email or web address] Not available 02/02/2017 10:37:37 12/02/2017 12/02/2017 06/30/16 MRI brain w/o: normal; mid-sagital views show straightening of the cervical spine with mild degenerative changes; no Chiari, no white matter disease, no atrophy, no ischemic/restric wander diffusion, no masses or mass effect. - viewed on CD previously: pt counseled on findings as noted above but with straightening of the cervical spine most likely from spasms in the neck [email or web address] Not available 12/02/2017 14:22:32 11/02/2019 11/02/2019 06/30/16 MRI brain w/o: normal; mid-sagital views show straightening of the cervical spine with mild degenerative changes; no Chiari, no white matter disease, no atrophy, no ischemic/restric wander diffusion, no masses or mass effect. - viewed on CD previously: pt counseled on findings as noted above but with straightening of the cervical spine most likely from spasms in the neck [email or web address] Not available 11/02/2019 09:36:56 Plan of Treatment Reminders Order Date Submit Date Provider Last Modified By Organization Details Last Modified Time Details Appointments None recorde d. Lab None recorde d. Referral physica l therapi st referra l - PT eval/tx for cervico genic headach es, neck pain, probabl e dystoni a 2019 020 [email or web address] [facility], [address] [place] [address], [address], 0 08:04:[address] st referra l - PT eval/tx for cervico genic headach es, neck pain, probabl e dystoni a 2017 018 [email or web address] [facility], [address] [place] [address], [address], 8 10:57:38 physica l therapy neck referra l - occipta l neuralg ia, neck pain, myalgia 2016 017 [email or web address] [facility], [address] [place], [address], 8 09:18:12 Procedures None recorde d. Surgeries nerve block, occipit al (SURG) 2016 017 [email or web address] Not available 7 14:26:34 Imaging MRI, cervica l spine, w/o contras t 2016 017 [facility], [address] [place], [address], 7 08:39:24 Medication Orders sumatri ptan 50 mg tablet 2019 020 INTER[facility] [employer] [facility], [facility] [place], [address], 0 10:10:51 cyclobe nzaprin e 10 mg tablet 2019 020 [facility] [id number], [address] [place], [address], 0 10:11:03 baclofe n 10 mg tablet 2019 020 [facility] [id number], [address] [place] [address], [address], 0 10:10:59 Co Q-10 200 mg capsule 2017 018 [facility] [id number], [address] [place] [address], [address], 0 08:27:51 magnesi um oxide 400 mg (241.3 mg magnesi um) tablet 2017 018 [facility] [id number], [address] [place], [address], 0 08:29:50 Sinemet 25 mg-100 mg tablet 2017 018 [facility] [id number], [address] [place], [address], 0 08:30:24 Zofran 4 mg tablet 2016 017 [facility] [id number], [address] [place], [address], 8 14:10:52 Sprix 15.75 mg/spra y nasal spray 2016 017 lupis [facility], [address], [place], [place], [id number], 0 08:30:34 lidocai ne HCl 4 % (40 mg/mL) mucosal solutio n 2016 017 [facility], [address], [place], [place], [id number], 8 14:10:55 amitrip tyline 25 mg tablet 2016 017 [facility] [id number], [address] [place] [address], [address], 8 14:09:38 Compoun d Topical Cream Muscle Relaxan t Cream Plus Reformu lated 2016 017 [facility], [address], [place], [place], [id number], 2 10:22:33 Patient TargetsNo targets recorded. Patient Instructions Encounter Date Encounter Id Patient Instructions Last Modified By Organization Details Last Modified Time 07/14/2016 [id number] neck pain: care instructions [email or web address] Not available 07/14/2016 14:29:47 45 min with patient face to face time with > 50% in counseling regarding cause and treatment of occipital neuralgia, myalgia, straightening of the cervical spine Not available 07/14/2016 15:35:39 Reason for Referral occiptal neuralgia, neck panda n, myalgia Referring Physician: Prachi Hyde, Neurology, Encounter Date: 07/14/2016 Physical Therapist Referral for Cervico-occipital neuralgia PT eval/tx for cervicogenic headaches, neck pain, probable dystonia Referring Physician: Prachi Hyde, Neurology, Encounter Date: 12/02/2017 Physical Therapist Referral for Dystonia PT eval/tx for cervicogenic headaches, neck pain, probable dystonia Referring Physician: Prachi Hyde, Neurology, Encounter Date: 11/02/2019 Results Created Date Observation Date Name Description Value Unit Range Abnormal Flag Note LastModifiedBy Organization Detail LastModifiedTime 07/18/19 17 07/16/2016 MRI, cervi dean spine , w/o contr ast [facility] [address] [place] [address] Patisavanna britt Name: GRACIE britt : [birth year] 64 Patisavanna britt 5 Orderi ng Provid er: PRACHI YIN SON EXAM DATE: 2016 EXAM: MR CERVIC AL W/O CONTRA ST HISTOR Y: Neck pain FINDIN GS: Axial and sagitt al images were genera wander follow ing standa rd MRI pulse sequen ce protoc ol. No IV contra st was used. MARROW /ALIGN MENT: The alignm ent is normal with no indica tion of sublux ation. The fluid sensit anila or STIR exam shows no indica tion of signif icant bone marrow edema. No sublux ation. No eviden ce of fractu re. SPINAL CANAL: The spinal cord signal is normal PARASP INAL TISSUE S: There is no indica tion of parasp inal mass, fluid collec tion, or hemato ma. No eviden ce of prever tebral soft tissue swelli ng. INTERV ERTEBR AL DISCS: C2-C3: Negati ve C3-C4: Negati ve C4-C5: Negati ve C5-C6: Diffus e disc bulge. Minima l spurri ng. No spinal canal or forami nal stenos is C6-C7: Mild diffus e bulge and endpla te spurri ng. No spinal or forami nal stenos is C7-T1: Negati ve IMPRES SARAH: Minima l DDD change s are presen t Interp reted By: Александр Reed MD Electr onical ly Signed By: Александр Reed MD on 07/18/19 17 8:34 AM lupis [facility] [address], [address], 07/20/2016 16:10:01 Result Notes Documentation Provider Name and Address Organization Details Recorded Time Mri, Cervical Spine, W/o Contrast : [address] [place] [address] Patient Name: GRACIE VAZQUEZ Patient : 1965 Patient Ordering Provider: PRACHI HYDE EXAM DATE: 07/16/2016 EXAM: MR CERVICAL W/O CONTRAST HISTORY: Neck pain FINDINGS: Axial and sagittal images were generated following standard MRI pulse sequence protocol. No IV contrast was used. MARROW/ALIGNMENT: The alignment is normal with no indication of subluxation. The fluid sensitive or STIR exam shows no indication of significant bone marrow edema. No subluxation. No evidence of fracture. SPINAL CANAL: The spinal cord signal is normal PARASPINAL TISSUES: There is no indication of paraspinal mass, fluid collection, or hematoma. No evidence of prevertebral soft tissue swelling. INTERVERTEBRAL DISCS: C2-C3: Negative C3-C4: Negative C4-C5: Negative C5-C6: Diffuse disc bulge. Minimal spurring. No spinal canal or foraminal stenosis C6-C7: Mild diffuse bulge and endplate spurring. No spinal or foraminal stenosis C7-T1: Negative IMPRESSION: Minimal DDD changes are present Interpreted By: Александр Reed MD Opal Diaz [facility] 07/20/2016 16:10:01 Problems Name Problem SNOMED Code Status Onset Date Resolution Date Notes Provider Name and Address Organization Details Recorded Time Clinical finding Active 2015 From Automated Load;Provi jean-pierre: Terrence Gonsaels;Status : Active Not Available [facility] 6 02:25:24 Dysphagia 16006045 Active 2015 From Automated Load;Provi jean-pierre: Terrence Gonsales;Status : Active Not Available [facility] 6 02:25:24 Disturbanc e of salivary secretion Active 2015 From Automated Load;Provi jean-pierre: Terrence Gonsales;Status : Active Not Available [facility] 6 02:25:24 Clinical finding Active 2015 From Automated Load;Provi jean-pierre: Terrence Gonsales;Status : Active Not Available [facility] 6 02:25:24 Problem Notes None recorded. Procedures Surgical History Date Name Laterality Status Provider Name and Address Organization Details Recorded Time Tonsillectomy completed Margo Souza [facility] 07/02/2016 13:23:08 Imaging Results None recorded. Procedure Notes None recorded. Medical Equipment None Reported. Allergies No known drug allergies Medications Name Sig Start Date Stop Date Status Note LastModified by Organization Details LastModified Time Compound Topical Cream Muscle Relaxant Cream Plus Reformula wander 1-2 grams to neck and shouders tid-qid prn 11/01 completed Not Available Not Available Not Available cyclobenz aprine 10 mg tablet TAKE ONE-HALF TO ONE TABLET BY MOUTH TWO TIMES A DAY NEEDED FOR NECK PAIN 2019 active Not Available Not Available Not Avai lable gabapenti n 600 mg tablet tid active Not Available Not Available Not Available ketoconaz ole 2 % shampoo 11/01 completed Not Available Not Available Not Available azithromy raghu 250 mg tablet 07/14 completed Not Available Not Available Not Available hydrocodo ne 5 mg-acetam inophen 325 mg tablet 12/02 completed Not Available Not Available Not Available ondansetr on HCl 4 mg tablet 1@ migraine oneset; may repeat q8h. 12/02 completed Not Available Not Available Not Available sumatript an 50 mg tablet TAKE 1 TABLET AT ONSET OF MIGRAINE DIRECTED . MAY REPEAT AFTER 2 HOURS NEEDED. MAXIMUM OF 2 TABLETS IN 24 HOURS 2019 active Not Available Not Available Not Avai lable clotrimaz ole 1 % vaginal cream 11/01 completed Not Available Not Available Not Available butalbita l-acetami nophen-ca ffeine 50 mg-325 mg-40 mg tablet 07/14 completed Not Available Not Available Not Available ketorolac 10 mg tablet 11/01 completed Not Available Not Available Not Available alprazola m 0.5 mg tablet Daily 02/02 completed Not Available Not Available Not Available alprazola m 0.25 mg tablet tid active Not Available Not Available Not Available amitripty line 25 mg tablet Take 1 tablet every day by oral route. 12/02 completed stopped per pt. Not Available Not Available Not Available magnesium oxide 400 mg (241.3 mg magnesium ) tablet Take 1 tablet every day by oral route at bedtime. 11/01 completed Not Available Not Available Not Available famciclov ir 500 mg tablet 11/01 completed Not Available Not Available Not Available lidocaine HCl 4 % (40 mg/mL) mucosal solution 1 spray each naustril tid-qid prn 12/02 completed Not Available Not Available Not Available dicyclomi ne 20 mg tablet 11/01 completed Not Available Not Available Not Available sulfaceta mide sodium 10 % eye drops 11/01 completed Not Available Not Available Not Available baclofen 10 mg tablet 1-2 tabs PO qhs and 1/2 - 1 tab bid PRN 2019 active Not Available Not Available Not Avai lable butalbita l 50 mg-acetam inophen 325 mg-caffei ne 40 mg-codein e 30 mg cap 11/01 completed Not Available Not Available Not Available hyoscyami ne 0.125 mg sublingua l tablet 07/14 completed Not Available Not Available Not Available promethaz ine 25 mg tablet TAKE 1/2 TABLET at onset of migraine ; may repeat Q6hrs PRN active Not Available Not Available No t Available gabapenti n 300 mg capsule tid 11/01 completed Not Available Not Available Not Available omeprazol e 20 mg capsule,d elayed release Daily active Not Available Not Available Not Available Sinemet 25 mg-100 mg tablet begin 1 tab daily x 3d, then 1 tab bid x 3d, then 1 tab tid; after 2 weeks, ^ to 1.5 tabs tid; take at least 1 hour before meals 11/01 completed Not Available Not Available Not Available gabapenti n 100 mg capsule 07/14 completed Not Available Not Available Not Available metoprolo l succinate ER 25 mg tablet,ex tended release 24 hr active Not Available Not Available Not Available ibuprofen 600 mg tablet prn only active Not Available Not Available Not Available methylpre dnisolone 4 mg tablets in a dose pack 07/14 completed Not Available Not Available Not Available cefdinir 300 mg capsule 07/14 completed Not Available Not Available Not Available sulindac 200 mg tablet 12/02 completed Not Available Not Available Not Available metoprolo l tartrate 25 mg tablet 11/01 completed Not Available Not Available Not Available duloxetin e 30 mg capsule,d elayed release Daily active Not Available Not Available Not Available Co Q-10 200 mg capsule 1 qam 11/01 completed Not Available Not Available Not Available Lopressor 25mg Daily 02/02 completed Frequenc y: daily;Me dication Descript ion: metoprol ol; Dosage:1 ; refills: 5; Quantity :60 Not Available Not Available Not Available levocetir izine 5 mg tablet Daily 02/02 completed Not Available Not Available Not Available Sumavel DosePro 6 mg/0.5 mL subcutane ous needle-fr ee injector As Directed 02/02 completed Duration : 30 days;Ins truction s: 1 at onset severe migraine ; may repeat p2h PRN; max 2 doses sumatrip nash/24h; Frequenc y: as direct.; Medicati on Descript ion: sumatrip nash; Dosage:a s directed ; Route:baum bcutaneo us; refills: 6; Quantity :4 solution Not Available Not Available Not Available Sprix 15.75 mg/spray nasal spray 1 spray per nostril @ migraine onset. 11/01 completed Not Available Not Available Not Available Flucelvax Quad (PF) 60 mcg (15 mcg x 4)/0.5 mL IM syringe TO BE ADMINIST ERED BY PHARMACI ST FOR IMMUNIZA TION 11/01 completed Not Available Not Available Not Available Vitals Date Recorded Body height Body weight Body mass index (BMI) Heart rate Systolic And Diastolic Provider Name and Address Organization Details Last Updated DateTime 07/14/2016 172.72 cm 52947.64 g 19.2 kg/m2 66 /min 115/61 mm[Hg] Opal Diaz [facility] 7 12:56:30 Date Recorded Body height Body mass index (BMI) Body weight Heart rate Systolic And Diastolic Provider Name and Address Organization Details Last Updated DateTime 12/02/2017 172.72 cm 21.4 kg/m2 54731.52 g 84 /min 98/64 mm[Hg] Margo Souza [facility] 8 14:08:27 Date Recorded Body height Body mass index (BMI) Body weight Heart rate Systolic And Diastolic Provider Name and Address Organization Details Last Updated DateTime 02/02/2017 172.72 cm 21.1 kg/m2 95219.34 g 100 /min 110/70 mm[Hg] Opal Diaz [facility] 08:49:32 Social History Question Answer Notes LastModified by Organizat ion Details LastModified Time Tobacco Smoking Status Never Smoker Margo Souza null, [facility] 07/02/2016 13:22:54 Live Alone Or With Others? With Others [email or web address] Information not available 07/02/2016 Marital Status [email or web address] Informat ion not available 07/02/2016 What Was The Date Of Your Most Recent Tobacco Screening? 12/02/2017 Information n ot available 05/02/2019 Sex: Unknown Functional Status Question Answer Note LastModified by Organizat ion Details LastModified Time What is your level of alcohol consumption? None [email or web address] Information not available 07/02/2016 What is your occupation? unemployed [email or web address] Information not available 07/14/2016 Mental Status None recorded. Family History Relationship Description Onset Age of this Age Resolved Age Notes LastModified by Organization Details LastModified Time Maternal Grandfather Family history of malignant neoplasm [email or web address] Not available 13:22:43 Medical History Condition Response Depression Y Anxiety Disorder Y Arthritis Y Migraines Y Neurological Problems Y Gynecological HistoryNo gynecological history recorded. Obstetrics History GPAL:G 0 P 0 0 0 0 Past Encounters Encounter ID Performer Location Encounter Start Date Encounter Closed Date Diagnosis/Indication Diagnosis SNOMED-CT Code Diagnosis ICD10 Code Diagnosis Note [id number] PRACHI HYDE MD NEUROLOGY [facility] [address] [facility] [place] [address] 07/14/2016 11:40:36 07/14/2016 14:32:06 Cervico-occipital neuralgia 71709003 M54.81 schedule nerve blocks with Kenalog (both sides) -- very TTP over b/l JAZZMINE and LONsand TPIs to traps, CPS, rhomboids Continue Neurontin 300 mg tidAdd amitripytl ine 25 mg qhsstop ibuprofens tart MRC with ketoprofen to neck and shoulderst rial cranial cradle Occipital headache 64007 7 R51 as abovetrial of cranial cradlecont inue Neurontin Migraine without aura 56 825144 G43.009 Neck pain 81718762 M54.2 alternate MRC reformulat ed with DoTerra Serenity and Deep Blue begin PT eval/tx once she has results of MRI Paresthesia of skin 1026 88933 R20.2 numbness/t ingling decending down body worse with flexion of the neckneck painsuspec t cervical DDD, less likely demyelinat ing- no sensory d/o found on exam today Muscle pain 06069614 M79 .1 add CoQ10 300 mg qam and magnesium oxide or citrate 400 mg qhsbaclofe n 10 mg hs prn (hold Flexeril for now) - WAIT until you know how you feel on the amitriptyl inePTuse Lacross ball to work out muscle spasms in upper back, shoulders. schedule TPIs to include traps, CPS +/- rhomboids [id number] PRACHI HYDE MD NEUROLOGY [facility] [address] [place] [address] 02/02/2017 08:34:54 02/02/2017 12:14:35 Cervico-occipital neuralgia 77518055 M54.81 schedule nerve blocks with Kenalog (both sides) -- very TTP over b/l JAZZMINE and LONsand TPIs to traps, CPS, rhomboids counseled on probable central sensitizat ion involved in her process; suspect the childhood injury falling and hitting back of head on concrete sustaining concussion may be the injury that has caused chronic local tissue/c-s pine injury triggering this process; counseled on medical management and use of sedating medication s, avoiding excessive dose, but ok to take Flexeril and Neurontin at bedtime and Bentyl during the day, should not cause excessive sedation or respirator y suppressio n, leading to arrest She has been to ER 6 times this year and has found Toradol infusion is the only thing that helps her. -Start Sprix nasal spray @migraine/ headache onset-Star t Zofran @ migraine onset.-Tri al of lidocaine nasal sprayConti nue Neurontin 300 mg tid (prescribe d elsewhere) - Begin Magnesium Oxide 400mg qhs- Begin CoQ10 300 mg qam- Continue amitripytl ine 25 mg qhs- avoid excessive ibuprofen- Continue MRC Plus alternate with DoTerra Past Tense or Serinity-- advised that she take Zofran and/or lidocaine nasal drops prior to use of Past Tense which may help with hypersensi tivity to the smell of the product- cranial cradle, as tolerated Occipital headache 22816 7 R51 as abovetrial of cranial cradlecont inue Neurontin Migraine without aura 56 229192 G43.009 Neck pain 04866525 M54.2 alternate MRC reformulat ed with DoTerra Serenity and Deep Blue begin PT eval/tx once she has results of MRI Paresthesia of skin 1026 92321 R20.2 numbness/t ingling decending down body worse with flexion of the neckneck painsuspec t cervical DDD, less likely demyelinat ing- no sensory d/o found on exam today Muscle pain 57035255 M79 .1 add CoQ10 300 mg qam and magnesium oxide or citrate 400 mg qhsbaclofe n 10 mg hs prn (hold Flexeril for now) - WAIT until you know how you feel on the amitriptyl inePTuse Lacross ball to work out muscle spasms in upper back, shoulders. 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 [address] [facility] [place] [address] 12/02/2017 13:40:54 12/03/2017 07:42:47 Cervico-occipital neuralgia 20888407 M54.81 schedule nerve blocks with Kenalog (both sides) -- very TTP over b/l JAZZMINE and LONsand TPIs to traps, CPS, rhomboids counseled on probable central sensitizat ion involved in her process; suspect the childhood injury falling and hitting back of head on concrete sustaining concussion may be the injury that has caused chronic local tissue/c-s pine injury triggering this process; counseled on medical management and use of sedating medication s, avoiding excessive dose, but ok to take Flexeril and Neurontin at bedtime and Bentyl during the day, should not cause excessive sedation or respirator y suppressio n, leading to arrest She has been to ER 6 times this year and has found Toradol infusion is the only thing that helps her. -Phenergan +/- Imitrex @ onset migraine/h eadache onset- Continue Neurontin 300 mg tid (prescribe d elsewhere) - Continue CoQ10 and resume magnesium qhs- Begin CoQ10 300 mg qam- Off amitriptyl ine 25 mg qhs- avoid excessive ibuprofen, analgesics - Continue MRC Plus alternate with DoTerra Past Tense or Serinity-- advised that she take Zofran and/or lidocaine nasal drops prior to use of Past Tense which may help with hypersensi tivity to the smell of the product- cranial cradle, as tolerated Cervicocra nial syndrome 15422480 M53.0 as above.pt counseled on symptoms consistent with this syndrome Occipital headache 32723 7 R51 as abovetrial of cranial cradlecont inue Neurontin Migraine without aura 56 535588 G43.009 Phenergan 12.5 mg+ Benadryl 12.5 mg at onset migraine +/- Exedrine Migraine or Imitrex Neck pain 68853810 M54.2 alternate MRC reformulat ed with DoTerra Serenity and Deep Blue begin PT eval/tx once she has results of MRI Muscle pain 94021131 M79 .1 CoQ10 300 mg qam and magnesium oxide or citrate 400 mg qhsbaclofe n 10 mg hs prn (hold Flexeril for now) - WAIT until you know how you feel on the amitriptyl inePTuse Lacross ball to work out muscle spasms in upper back, shoulders. PRN TPIs to include traps, CPS +/- rhomboidsR esume PT 40 min appt with > 50% in counseling Dystonia 39506892 G24.9 I suspect she has dystonia. Her exam and symptoms highly suggestive and h/o dysphagia since she can remember. This may be the underlying trigger to her headaches and cervicogen ic syndrome. She is adopted, does not know FH. Resume PT - trial of Sinemet 25/100 titrating to 1-1.5 tab tid and may consider Botox in coming months. [id number] PRACHI HYDE MD NEUROLOGY [facility] [address] [place] [id number] 11/02/2019 08:23:09 11/02/2019 10:28:37 Cervico-occipital neuralgia 78251426 M54.81 schedule nerve blocks with Kenalog (both sides) -- very TTP over b/l JAZZMINE and LONsand TPIs to traps, CPS, rhomboids counseled on probable central sensitizat ion involved in her process; suspect the childhood injury falling and hitting back of head on concrete sustaining concussion may be the injury that has caused chronic local tissue/c-s pine injury triggering this process; counseled on medical management and use of sedating medication s, avoiding excessive dose, but ok to take Flexeril and Neurontin at bedtime and Bentyl during the day, should not cause excessive sedation or respirator y suppressio n, leading to arrest She has been to ER 6 times this year and has found Toradol infusion is the only thing that helps her. - consider Botox for cervical dystonia-P henergan +/- Imitrex or Excedrin Migraine @ onset migraine/h eadache onset- Now on Neurontin 600 mg tid (prescribe d elsewhere) -- consintue- No benefit from CoQ10 or magnesium- No benefit from Sinemet- Off amitriptyl ine 25 mg qhs- avoid excessive ibuprofen, analgesics - Continue CBD oil - sending back to PT for cervical dystonia- cranial cradle, as tolerated Dystonia [id number] G24.2 I suspect she has dystonia. Her exam and symptoms highly suggestive and h/o dysphagia since she can remember. This may be the underlying trigger to her headaches and cervicogen ic syndrome. She is adopted, does not know FH. Resume PT Trial of baclofen at bedtime; may titrate up to tid, but for now Flexeril bid PRN during the day If insufficie nt benefit from PT, then will give a trial to Botox She is on Neurontin [address] Deutsch No benefit from Sinemet Cervicocra nial syndrome 86116997 M53.0 as above.pt counseled on symptoms consistent with this syndrome Occipital headache 59172 7 R51 as abovetrial of cranial cradlecont inue Neurontin Migraine without aura 56 837543 G43.009 Phenergan 12.5 mg+ Benadryl 12.5 mg at onset migraine +/- Exedrine Migraine or Imitrex Neck pain 76242648 M54.2 alternate MRC reformulat ed with DoTerra Serenity and Deep Blue begin PT eval/tx once she has results of MRI Muscle pain 03332601 M79 .12 baclofen 10 mg qhs prn and use Flexil 10 mg bid PRN use Lacross ball to work out muscle spasms in upper back, shoulders. 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 as above Health Concerns Section Related Observation LastModified by Organization Detai ls LastModified Time None Recorded Concern Status LastModified by Organization Details LastModified Time None Recorded Advance Directives Directive None Recorded Payers Insurance Date Sequence Insurance Name Policy Number Policy Rodriguez Covered Member ID Rodriguez Member ID Guarantor Name 11/08/2019 1 [facility] [id number] Kd Vazquez [id number] Gracie Vazquez 11/02/2019 2 [place] Gracie Vazquez [id number] Gracie Vazquez 07/05/2023 PAYMENT PLAN Gracie Vazquez OBGyn Episode No OBEpisode recorded.
--- OUTSIDE RECORDS SUMMARY | 2024-10-09 09:57 | XMS_ITS ---
Author Organization [facility] Address [address] [place] [address] Care Team Providers Care Secretary Book Keeper Name Role Phone Александр Deutsch MD Primary Care Provider [phone] [phone] Chronic Migraine - External Program Status:Enrolled (Active) Start date:01/06/2023 Enrollment date:01/06/2023 Enrollment reason:Referred by provider Current support & services provided:Refill Coordination , Benefits Investigation, Prior Authorization, External Pharmacy Dispensing, Financial Assistance Linked medications:Atogepant (Active) Linked problems:Migraine without aura, intractable, without status migrainosus (Active) Case Team Name Relationship Phone Ky Hyman MD Consulting Physician Continued Care and Services Coordination
--- OUTSIDE RECORDS SUMMARY | 2024-10-09 09:57 | XMS_ITS | Encounter Summary ---
Author Organization [facility] Address [address] [place] [id number] Care Team Providers Care Arch Support Technician Name Role Phone Александр Deutsch MD Primary Care Provider [phone] [phone] Reason for Visit * Reason Onset Date Comments Med Refill 03/19/2021 Encounter Details Date Type Department Care Team (Late st Contact Info) Description 03/19/2021 Refill [facility] [address] [facility] [address] [place] [address] Ky Hyman MD [address] [facility] [address] [place] [address] Social History Tobacco Use Types Packs/Day Years Used Date Smoking Tobacco: Never Smokeless Tobacco: Never Alcohol Use Standard Drinks/Week Comments No 0 (1 standard drink = 0.6 oz pur e alcohol) Comments No Sex and Gender Information Value Date Recorded Sex Assigned at Not on file Legal Sex Female 11:56 AM EDT Gender Identity Not on file Sexual Orientation Not on file documented as of this encounter Miscellaneous Notes * Telephone Encounter - AviAriela RegSched Rep - 03/19/2021 10:15 AM EST Caller: Gracie Bowen Relationship: Self Best call back number: [phone] Requested Prescriptions: Requested Prescriptions Pending Prescriptions Disp Refills ??? gabapentin (NEURONTIN) 300 MG capsule 180 capsule 3 Sig: Take 2 capsules by mouth 4 (Four) Times a Day. Pharmacy where request should be sent: [facility] [address] [facility] [place], [place] - [address] [facility] - [phone] - [phone] Additional details provided by patient: PT STATES SHE HAS MORE THEN 3 DAYS POSSIBLY SHE ISN'T AWAREAS SHE ISN'T CURRENTLY HOME. Does the patient have less than a 3 day supply: [] Yes [x] No Inna Rosa Rep 03/19/21 10:16 EST documented in this encounter Plan of Treatment Not on file documented as of this encounter Visit Diagnoses Not on filedocumented in this encounter Care Teams Arch Support Technician Relationship Specialty Start Date End Date Александр Deutsch MD [address] [facility] [address] [place] [address] PCP - General Family Medicine 06/20/16 documented as of this encounter
--- OUTSIDE RECORDS SUMMARY | 2024-10-09 09:57 | XMS_ITS | Clinical Summary ---
Author Organization [facility] Address [address] [place] [address] Care Team Providers Care Sprinkling System Installer Name Role Phone Александр Deutsch MD Primary Care Provider [phone] [phone] Allergies Active Allergy Reactions Criticality Noted Date Comments Amitriptyline Other (See Comments) 05/14/2019 BAD DREAMS Butalbital-Acetaminophen Other (See Comments) 0 05/14/2019 CAN'T TAKE Indomethacin Other (See Comments) 05/14/2019 CAN'T TAKE Eletriptan Hydrobromide Other (See Comments) CAN'T TAKE Topiramate Other (See Comments) 05/14/2019 CAN'T TAKE Tramadol Other (See Comments) 05/14/2019 CAN'T TAKE Bupropion Other (See Comments) 05/14/2019 CAN'T TAKE Medications omeprazole (priLOSEC) 20 MG capsule Take 1 capsule by mouth Daily. Active metoprolol tartrate (LOPRESSOR) 25 MG tablet Take 1 tablet by mouth Daily. Active Multiple Vitamins-Minera ls (MULTIVITAMIN ADULT PO) Take by mouth. Activ e aspirin-acetami nophen-caffeine (EXCEDRIN MIGRAINE) 250-250-65 MG per tablet Take 1 tablet by mouth Every 6 (Six) Hours As Needed for Headache. Active hydroCHLOROthia zide (MICROZIDE) 12.5 MG capsule Take 1 capsule by mouth Daily. Active ALPRAZolam (XANAX) 0.5 MG tablet Take 0.5 tablets by mouth 3 (Three) Times a Day. 1 Active DULoxetine (CYMBALTA) 30 MG capsule Take 1 capsule by mouth Daily. 1 Active Atogepant (Qulipta) 60 MG tablet Take 1 tablet by mouth Daily. 16 tablet 3 Active SUMAtriptan (IMITREX) 100 MG tablet Take 1 tablet by mouth Every 2 (Two) Hours As Needed for Migraine for up to 30 days. Take one tablet at onset of headache. May repeat dose one time in 2 hours if headache not relieved. Must schedule appointment for additional refills 10 tablet 4 Active gabapentin (NEURONTIN) 300 MG capsuleIndicati ons:Myofascial pain syndrome, cervical Take 2 capsules by mouth 4 (Four) Times a Day. Needs to schedule and KEEP appt for further refills 240 capsule 4 Active Active Problems Problem Noted Date Diagnosed Date Migraine without aura, intra ctable, without status migrainosus 01/06/2023 Social History Tobacco Use Types Packs/Day Years Used Date Smoking Tobacco: Never Smokeless Tobacco: Never Tobacco Cessation:Counseling Given: Not Answered Alcohol Use Standard Drinks/Week Comments Never 0 (1 standard drink = 0.6 oz pur e alcohol) Abuse Screen Answer Date Recorded Unsafe at Home or Work/School Not on file Feels Threatened by Someone? Not on file 01/2023 Does Anyone Keep You from Co ntacting Others or Doint Things Outside the Home? Not on file 12/23/2022 Physical Sign of Abuse Present Not on file 1 Housing Stability Answer Date Recorded Current Living Arrangements Not on file 12/13 Potentially Unsafe Housing Conditions Not on sami e 12/23/2022 Family and Community Support Answer Brian e Recorded Help with Day-to-Day Activities Not on file 12/23/2022 Lonely or Isolated Not on file 12/23/2022 Employment Answer Date Recorded Do you want help finding or keeping work or a madhav b? Not on file 12/23/2022 Disabilities Answer Date Recorded Concentrating, Remembering, or Making Decisions Difficulty Not on file 12/23/2022 Doing Errands Independently Difficulty Not on fi le 12/23/2022 Education Answer Date Recorded Help with school or training? Not on file Preferred Language Not on file 12/23/2022 Comments No Sex and Gender Information Value Date Recorded Sex Assigned at Not on file Legal Sex Female 11:56 AM EDT Gender Identity Not on file Sexual Orientation Not on file Last Filed Vital Signs Vital Sign Reading Time Taken Comments Blood Pressure 102/62 08/10/2023 2:45 PM EDT Pulse 69 08/10/2023 2:45 PM EDT Temperature 36 C (96.8 F) 07/22/2020 1:53 PM EDT Respiratory Rate 18 05/14/2019 11:39 AM EST Oxygen Saturation 98% 08/10/2023 2:45 PM EDT Inhaled Oxygen Concentration - - Weight 61.2 kg (135 lb) 04/07/2022 2:00 PM EST Height 172.7 cm (5' 8 ) 04/07/2022 2:00 PM EST Body Mass Index 20.53 04/07/2022 2:00 PM EST Plan of Treatment Health Maintenance Due Date Last Done Comments Annual Gynecologic Pelvic an d Breast Exam 1964 TDAP/TD VACCINES (1 - Tdap) 07/16/1983 PAP SMEAR 1985 MAMMOGRAM 2004 COLOGUARD 2009 COLON CANCER SCREENING 5 YEA R SIGMOIDOSCOPY 2009 COLONOSCOPY [address] CANCER SCREENING 2009 [address] COLONOGRAPHY 2009 FECAL OCCULT BLOOD TEST 2009 FIT Testing (1 year) 2009 Pneumococcal Vaccine 50+ (1 of 1 - PCV) 2014 ZOSTER VACCINE (1 of 2) 2014 ANNUAL WELLNESS VISIT 06/20/2016 HEPATITIS C SCREENING 06/20/2016 COVID-19 Vaccine (4 - 2023-2 5 season) 2023 02/18/2021, 07/03/2020, 06/07/2020 INFLUENZA VACCINE 12/13/2024 12/30/2021, , 01/17/2020, Additional history exists Insurance [facility] MEDICARE ADVANTAGE Care Teams Sprinkling System Installer Relationship Specialty Start Date End Date Александр Deutsch MD [facility] [address] [facility] [address] [place] [address] PCP - General Family Medicine 06/20/16
--- OUTSIDE RECORDS SUMMARY | 2024-10-09 09:57 | XMS_ITS | Patient Health Record ---
Author Organization [facility] Address [address] [facility] [address] [place] [id number] Care Team Providers Care Sales Development Representative Name Role Phone Max Deutsch Primary Care Provider Adiel Poe Unavailable [phone] Edilberto Garcia Unavailable [phone] Allergies Allergen (clinical drug ingredient) Drug/Non Drug [...] Interpretation:satisfactory Performing Lab: Notes/Report: Test performed by [facility], [facility] [facility] , [address], [place] [address] Raman Bradley MD, Riding Teacher CLIA: [id number] Sodium 141 135-145 mmol/L Potassium 4.5 3.5-5.3 [...] Interpretation:Normal Performing Lab: Notes/Report: Test performed by [facility] [address] [place] [address] , [address], [place] [address] Raman Bradley MD, Riding Teacher CLIA: [id number] TSH 4.62 0.43-5.25 mU/L CBC Fingerstick (in house) Reviewed date:11/26/2023 03:49:48 PM Interpretation: Performing Lab: Notes/Report: wbc 8.1 3.5 - 10 lym 16.2% 15 - 50 mid 4.8% 2 - 15 gran 79.0% 35 - 80 rbc 4.47 3.5 - 5.5 hgb 14.2 11.5 - 16.5 hct 43.0 35 - 55 mcv 96.1 75 - 100 mch 31.8 25 - 35 mchc 33.1 31 - 38 plat 164 100 - 400 Influenza Screen (in house) Reviewed date:11/26/2023 03:49:39 PM Interpretation: Performing Lab: Notes/Report: results Neg P-SHOAIB Reviewed date:04/12/2024 09:18:02 AM Interpretation: Performing Lab: Notes/Report: P-Sed Rate (ESR) Reviewed date:04/12/2024 09:18:53 AM Interpretation: Normal Performing Lab: Notes/Report: Test performed by [facility], [address] , [address], [place] [address] Raman Bradley MD, Riding Teacher CLIA: [id number] Erythrocyte Sedimentation Ra te (ESR), Automated 2 <31 mm/hr B-V-Ukfopjrs Protein (CRP) Reviewed date:04/12/2024 09:18:53 AM Interpretation: Normal Performing Lab: Notes/Report: Test performed by [facility] [address] , [address], [place] [address] Raman Bradley MD, Riding Teacher CLIA: [id number] C-Reactive Protein (CRP) 0.04 <0.50 mg/dL P-Antistreptolysin O AB Reviewed date:04/12/2024 09:18:53 AM Interpretation:ASO positive Performing Lab: Notes/Report: Test performed by [facility] [address] , [address], [place] [address] Raman Bradley MD, Riding Teacher CLIA: [id number] Antistreptolysin O AB 406.0 <20-200.0 IU/mL CBC Venipuncture (in house) Reviewed date:04/12/2024 09:17:11 AM Interpretation: Performing Lab: Notes/Report: wbc 4.2 3.5 - 10 lymph 23.7% 15 - 50 mid 6.9% 2 - 15 gran 69.4% 35 - 80 rbc 4.56 3.5 - 5.5 hgb 14.3 11.5 - 16.5 hct 42.4 35 - 55 mcv 92.8 75 - 100 mch 31.5 25 - 35 mchc 33.9 31 - 38 platlet 183 100 - 400 Covid test (in house) Reviewed date:11/26/2023 03:49:59 PM Interpretation: Performing Lab: Notes/Report: Result: Neg Antinuclear Antibodies (SHOAIB) Screen Reviewed date:04/12/2024 09:18:53 AM Interpretation: Normal Performing Lab: Notes/Report: Test performed by [facility] [address] [place] [address] , [address], [place] [address] Raman Bradley MD, Riding Teacher CLIA: [id number] Antinuclear Antibodies (SHOAIB) Screen Negative Negative This test is perform ed by Multiplex Bead Immunoassay methodology. Medications Medication SIG (Take, Route, Frequency, Duration) Notes Start Date End Date Status ALPRAZolam 0.5 MG 1 tab(s) orally 3 ti mes a day 08/11/2024 Active Omeprazole 20 MG 1 capsule orally onc e a day; Duration: 90 days Active DULoxetine HCl 30 MG 1 cap(s) orally onc e a day; Duration: 90 days Active Promethazine HCl 25 MG 1 tab(s) orally t hree times a day as needed 07/01/2022 Active Gabapentin 300 MG 2 cap(s) orally 3 ti mes a day Active MiraLax - 17 Grams Orally ONCE A DAY 02/16/2013 Active Qulipta 30 MG 1 tab(s) orally once a day Active Excedrin Migraine 250-250-65 MG 2 tab(s) orally every 6 hours Active Metoprolol Succinate ER 25 MG 1 tablet Orally Once a day; Duration: 90 days Active Immunizations Vaccine Route Administration Date Status Comme nts COVID 19 Pfizer Unknown 06/07/2020 Administered COVID 19 Pfizer Unknown 07/03/2020 Administered COVID 19 Pfizer Unknown 02/18/2021 Administered Fluzone PF Quad (6-35 months) Unknown 01/17/2020 Administered Fluzone Quad (6months&older) IM Intramuscular 12/28/2017 Administered Fluzone Quad (6months&older) Unknown 01/18/2020 Administered Problems Problem Type SNOMED Code ICD Code Onset Dates Problem Status W/U Status Risk Notes Problem Cervicalgia (40754793) Cervicalgia (M54.2) Active confirmed Problem Generalized anxiety disorder (27362022) Generalized anxiety disorder (F41.1) Active confirmed Problem Dystonia (17782237) Other dyston ia (G24.8) Active confirmed Problem Chronic tension-type headache (773473554) Chronic tension-type headache, intractable (G44.221) Active confirmed Problem Chronic tension-type headache (582215192) Chronic tension-type headache, not intractable (G44.229) Active confirmed Problem Headache disorder (178060635) Other complicated headache syndrome (G44.59) Active confirmed Problem Headache disorder (294842872) Other headache syndrome (G44.89) Active confirmed Problem Irritable bowel syndrome with diarrhea (342392786) Irritable bowel syndrome with diarrhea (K58.0) Active confirmed Problem Irritable bowel syndrome (87714813) Irritable bowel syndrome without diarrhea (K58.9) Active confirmed Problem Reactive depression (situational) (86507694) Situational depression (F43.21) Active confirmed Problem Migraine without aura, not refractory (644222472) Migraine without aura and without status migrainosus, not intractable (G43.009) Active confirmed Problem Paresthesia (finding ) (81014137) Paresthesias (R20.2) Active confirmed Problem Headache (84134965) Periodic hea dache syndrome, 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) Active confirmed Problem Mitral valve prolaps e (412304006) Mitral valve prolapse (I34.1) Active confirmed Problem Dysphagia (47517500) Dysphagia, unspecified type (R13.10) Active confirmed Problem Fibromyositis (95176227) Fibromyositis (M79.7) Active confirmed Problem Chronic migraine without aura with status migrainosus (253712742112705) Intractable chronic migraine without aura and with status migrainosus (G43.711) Active confirmed Problem History of malignant basal cell tumor of skin (222858191) History of basal cell carcinoma (Z85.828) Active confirmed Problem Pure hypercholesterolemia (636555064) Pure hypercholesterolemia (E78.00) Active confirmed Problem Fibrocystic breast changes (03265064) Fibrocystic breast disease (FCBD), unspecified laterality (N60.19) Active confirmed Vital Signs Heart Rate 69 /min 09/08/2024 Blood pressure diastolic 60 mm Hg 09/08/2024 Height 67 in 09/08/2024 Blood pressure systolic 100 mm Hg 09/08/2024 Weight 132 lbs 09/08/2024 BMI 20.67 kg/m2 09/08/2024 Encounters Encounter Location Date Provider Diagnosis [facility] [address] [facility] [address] [facility] [address] [place], [place] [id number] 11/26/2023 Max Deutsch Acute URI J06.9 [facility] [address] [facility] [address] [facility] [address] [place], [place] [id number] 04/10/2024 Edilberto Garcia Sorethroat J02.9 ; P ain in right toe(s) M79.674 and Pain in left toe(s) M79.675 [facility] [address] [place], [place] [id number] 05/11/2024 Max Deutsch Paresthesias R20.2 ; Mitral valve prolapse I34.1 ; Generalized anxiety disorder F41.1 and Cervicalgia M54.2 [facility] [address] [place], [place] [id number] 08/11/2024 Max Deutsch Chronic tension-type headache, intractable G44.221 ; Fibrocystic breast disease (FCBD), unspecified laterality N60.19 ; Screen for colon cancer Z12.11 ; Breast screening Z12.39 ; Cervicalgia M54.2 ; Generalized anxiety disorder F41.1 ; Situational depression F43.21 and BMI 21.0-21.9, adult Z68.21 [facility] [address] [place], [place] [id number] 09/08/2024 Max Deutsch Migraine without aur a and without status migrainosus, not intractable G43.009 ; Other complicated headache syndrome G44.59 ; Generalized anxiety disorder F41.1 ; Other dystonia G24.8 and BMI 20.0-20.9, adult Z68.20 [facility] [address] [place], [place] [id number] 04/24/2024 Max Deutsch Generalized anxiety disorder F41.1 ; Other complicated headache syndrome G44.59 and Chronic tension-type headache, not intractable G44.229 [facility] [address] [place], [place] [id number] 11/05/2023 Max Deutsch Nausea R11.0 [facility] [address] [place], [place] [id number] 01/17/2024 Max Deutsch Nausea R11.0 [facility] [address] [place], [place] [id number] 01/25/2024 Adiel Poe Generalized anxiety disorder F41.1 [facility] [address] [place] [id number] 03/13/2024 Max Deutsch Generalized anxiety disorder F41.1 [facility] [address] [place], [place] [id number] 03/16/2024 Max Deutsch Nausea R11.0 [facility] [address] [place], [place] [id number] 04/12/2024 Edilberto Houston [facility] [address] [place], [place] [id number] 04/14/2024 J Bo Deutsch [facility] [address] [place] [id number] 04/17/2024 J Bo Deutsch [facility] [address] [place], [place] [id number] 07/04/2024 J Bo Deutsch Chronic tension-type headache, not intractable G44.229 [facility] [address] [place], [place] [id number] 08/13/2024 Max Bo Deutsch [facility] [address] [place], [place] [id number] 08/21/2024 J Bo Deutsch [facility] [address] [place] [id number] 08/28/2024 J Bo Deutsch Chronic tension-type headache, not intractable G44.229 Assessments Encounter Date Diagnosis (ICD Code) Assessment Notes Treatment Notes Treatment Clinical Notes Section Notes 11/05/2023 Nausea (ICD-10 - R11.0) 11/26/2023 Acute URI (ICD-10 - J06.9) Symptomatic care 01/17/2024 Nausea (ICD-10 - R11.0) 01/25/2024 Generalized anxiety disorder (ICD-10 - F41.1) 03/13/2024 Generalized anxiety disorder (ICD-10 - F41.1) 03/16/2024 Nausea (ICD-10 - R11.0) 04/10/2024 Pain in right toe(s) (ICD-10 - M79.674) 04/10/2024 Sorethroat (ICD-10 - J02.9) 04/24/2024 Generalized anxiety disorder (ICD-10 - F41.1) 05/11/2024 Paresthesias (ICD-10 - R20.2) 05/11/2024 Mitral valve prolapse (ICD-10 - I34.1) 07/04/2024 Chronic tension-type headache, not intractable (ICD-10 - G44.229) 04/24/2024 Other complicated headache syndrome (ICD-10 - G44.59) 08/11/2024 Chronic tension-type headache, intractable (ICD-10 - G44.221) 08/28/2024 Chronic tension-type headache, not intractable (ICD-10 - G44.229) 09/08/2024 Migraine without aura and without status migrainosus, not intractable (ICD-10 - G43.009) 09/08/2024 Other complicated headache syndrome (ICD-10 - G44.59) 05/11/2024 Generalized anxiety disorder (ICD-10 - F41.1) 08/11/2024 Fibrocystic breast disease (FCBD), unspecified laterality (ICD-10 - N60.19) 04/24/2024 Chronic tension-type headache, not intractable (ICD-10 - G44.229) 04/10/2024 Pain in left toe(s) (ICD-10 - M79.675) 08/11/2024 Screen for colon cancer (ICD-10 - Z12.11) 05/11/2024 Cervicalgia (ICD-10 - M54.2) 09/08/2024 Generalized anxiety disorder (ICD-10 - F41.1) 09/08/2024 Other dystonia (ICD-10 - G24.8) 08/11/2024 Breast screening (ICD-10 - Z12.39) 08/11/2024 Cervicalgia (ICD-10 - M54.2) 09/08/2024 BMI 20.0-20.9, adult (ICD-10 - Z68.20) 08/11/2024 Generalized anxiety disorder (ICD-10 - F41.1) 08/11/2024 Situational depression (ICD-10 - F43.21) 08/11/2024 BMI 21.0-21.9, adult (ICD-10 - Z68.21) 09/08/2024 Other Needs Lipid profile Plan Of Treatment Pending Test Test Name Order Date Bone density 08/15/2024 Echocardiogram 05/11/2024 colonoscopy 08/11/2024 colonoscopy 05/09/2024 Mammogram 07/10/2024 Next Appt Details Provider Name:Max Herrera er, 12/11/2024 11:00:00 AM, [address], [address], [place], [phone], Insurance Providers Payer Name Payer Address Payer Phone Subscriber Number Group Number Insured Name Patient Relationship to Insured Coverage Start Date Coverage End Date [employer] (MEDICAR E) [address] [address] [place] [address] [phone] [id number] Self - patient is the insured Medications Administered Medication Instructions Date of Administration Dosage Notes Dexamethasone 11/03/2005 1 mL Morphine 12/06/2015 4 mg phenergan 25 mg/ml 12/06/2015 Medical (General) History Medical History History ICD Code Anxiety Acid Reflux Fibrocystic Breast Disease Mitral Valve Prolapse 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 Hyde since 01/2014 Pelvic US, small fibroid, nabothian cyst , 05/25/2012 CT Abd/pelvis normal 02/08/2013 Dystonia Occipital Neuralgia , followed by Dr. Pito jane COVID 19 Vaccine x2, 2020, Pfizer Surgical History Surgery Date(Month/Year) Tonsillectomy 1970 Mammatome Biopsy- Dr. Singleton 08/2005 Breast Fibroid Tumor Removed 12/15/2005 Root Canal 12/2012 Colonoscopy 04/2013 Lt Side of Nose Basal Cell Carcinoma, Dr Chema Ramirez 2021 Hospitalization History Reason Date(Month/Year) Headache- [place] [facility] 11/2019 Headache- [place] [facility] 11/2019 Migraine- [facility] 05/14/2019 Lt Arm Injury, Fell- [place] [facility] 02/01 19 Fall- [facility] 2018 Migrane- [place] [facility] 04/2013
== END 2024-10-09 23:59 | disposition home or self-care (01) ==
LOC: RAD 09:49
PROVIDERS: PCP Family Medicine; Visit Provider Family Medicine
DX: Z12.31 Encounter for screening mammogram for malignant neoplasm of breast (principal); R92.30 Dense breasts, unspecified
CPT/HCPCS: 77063; 77067